=== PATIENT | female | born 1960 | race Caucasian/White ===

== ENCOUNTER → 2018-05-14 10:12 | Outpatient (CLI) | payer MEDICARE, MEDICAID, SELFPAY ==
--- NOTE | 2018-05-14 10:15 | DI.MRI.S_ITS ---
PROCEDURE: MR HEAD/BRAIN WO/W CON INDICATIONS: LUNG MASS TECHNIQUE: Noncontrast axial T1 spin echo, axial T2 fast spin echo, sagittal and axial FLAIR, coronal T2 fast spin echo, axial gradient echo, axial diffusion and ADC through the brain. After the administration of contrast, axial and coronal 3D VIBE or T1 spin echo with fat saturation through the brain. COMPARISON: [facility], CT, CT CHEST ABD PEL W CON, 05/14/2018, 11:17. FINDINGS: Image quality: Excellent. CSF Spaces: Basal cisterns are patent. No extra-axial fluid collections. Ventricles are normal in size and shape. Brain: No midline shift. No intracranial bleeds or masses. No abnormal intracranial enhancement. The brainstem appears normal. Diffusion-weighted images demonstrate no acute ischemic insults. No chronic ischemic insults. Normal intravascular flow voids are present. Skull and face: Calvarial marrow is normal in signal. Orbits appear normal. Sinuses: Sinuses and mastoids appear clear. IMPRESSION: No findings of intracranial metastatic disease are seen. Dictated by: Kody Pride M.D. on 05/14/2018 at 11:05 Approved by: Kody Pride M.D. on 05/14/2018 at 11:06
--- NOTE | 2018-05-14 11:42 | DI.CT.S_ITS ---
PROCEDURE: CT CHEST ABD PEL W CON INDICATIONS: LUNG MASS TECHNIQUE: After the administration of oral and intravenous contrast, 5 mm thick sections acquired from the lung apices to the symphysis. 5 mm coronal and sagittal reformats were performed, with additional 7 mm coronal MIP reformats through the lungs. For radiation dose reduction, the following was used: automated exposure control, adjustment of mA and/or kV according to patient size. COMPARISON: [facility], RG, CT THORAX WITH CONTRAST, 04/23/2018, 13:26. FINDINGS: Image quality: Excellent. CHEST: Lungs and pleura: As noted on outside exam, there is diffuse upper lobe predominant emphysema. A large right upper lobe/hilar mass with spiculated margins causes constriction of the upper lobe bronchi and subsequent atelectasis. There are patchy smaller densities at the periphery of the mass which centrally measures 3.3 x 4.9 cm compared to 3.2 x 5 cm on prior. Craniocaudal extent of the mass is estimated at 4.9 cm. There is diffuse interstitial thickening throughout the peritumoral region of the right upper lobe, suspect for carcinomatosis. Small nodular densities in the left upper lobe laterally are indeterminate. Mediastinum: Heart size is normal. No pericardial effusion. Mediastinal adenopathy is partially confluent with the right upper lobe mass, such as a 12 mm AP diameter node in the pretracheal space at. An 8 mm shorter diameter right hilar node is suspicious. A 13 mm short diameter subcarinal node is abnormal. Thoracic aorta and central pulmonary arteries are normal in size. Esophagus is normal in caliber. No hiatal hernia. Chest wall: No axillary or supraclavicular adenopathy by size criteria. Thyroid gland shows an apparent 8mm nodule in the inferior right lobe. ABDOMEN: Solid organs: Liver is normal in size and enhancement. A posterior subcapsular hypodense mass measuring 3.5 x 6 cm shows internal attenuation of 39 postcontrast, indeterminate. The liver shows overall decreased attenuation compatible with fatty infiltration. Gallbladder appears normal. Biliary system is non dilated. Pancreas enhances normally. Spleen is normal in size and enhancement. Probable splenule lateral to the inferior pole of the spleen. No right adrenal nodules. There is a 9 mm enhancing left adrenal nodule suspect for metastasis. Kidneys demonstrate normal size and enhancement, without hydronephrosis. Peritoneum and bowel: Bowel loops demonstrate normal wall thickness and caliber. No free fluid or air. Nodes and vessels: No retroperitoneal or mesenteric adenopathy by size criteria. Aorta and inferior vena cava are normal in size. Miscellaneous: No ventral hernias. PELVIS: Genitourinary: Bladder wall thickness is normal. Uterus is atrophic. Miscellaneous: No inguinal hernias or adenopathy. Bones: No suspicious bony lesions. Degenerative facet arthropathy. Disc narrowing and mild anterolisthesis L3-4. No vertebral body compression fractures. IMPRESSION: 1. Large right upper lobe/hilar mass suspect for primary bronchogenic carcinoma. There is likely small satellite lesions as well as carcinomatosis within the right upper lobe. 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 2. Marked upper lobe predominant pulmonary emphysema. 3. Hepatic steatosis. Large subhepatic hypodense mass is indeterminant, possible residual of old hematoma. 4. Subcentimeter nodule within the left adrenal gland is suspect for early metastasis. No retroperitoneal or mesenteric adenopathy by size criteria. Dictated by: Rex Carson M.D. on 05/14/2018 at 12:29 Approved by: Rex Carson M.D. on 05/14/2018 at 12:54
== END ==
PROVIDERS: Visit Provider Internal Medicine Hematology & Oncology
DX: R91.8 Other nonspecific abnormal finding of lung field (principal); J43.9 Emphysema, unspecified; K76.0 Fatty (change of) liver, not elsewhere classified; E27.9 Disorder of adrenal gland, unspecified
CPT/HCPCS: 70553; 71260; 74177; A9579; Q9967

== ENCOUNTER 2018-05-20 07:46 | Day surgery (SDC) | payer MEDICARE, MEDICAID, SELFPAY ==
[2018-05-20] VITALS (11 sets, daily range): BP systolic 105–161; BP diastolic 68–93; PULSE 73–80; RESP 14–16; TEMP 36–36.7; O2SAT 93–98; BMI 17.6
--- NOTE | 2018-05-20 | PATH_ITS ---
[facility] Accession Number: [id number] . 01 Material submitted: . COMPLEX CYSTIC POSTERIOR LIVER LESION . 01 Clinical history: . THE STRUCTURE APPEARS MORE LIKE A COMPLEX FLUID COLLECTION WITH YELLOWISH GREEN FLUID CLOUDY (APPROX. BCC ASPIRATED) - SENT TO LAB SEPARATELY NEED CORE BIOPSY . 02 Diagnosis: Specimen Designated Complex Cystic Posterior Liver Lesion: No material and/or tissue identified (material submitted insufficient to survive processing). I05/21/2018 . 02 Electronically signed: . Ben Del Valle MD, Pathologist NPI- [id number] . 01 Gross description: . Received one formalin-filled container labeled with the patient's name and designated needle core biopsy. Scraped from Telfa paper and filtered is an extremely scant aggregate of light huizar tissue, which is filtered, wrapped and entirely submitted in one cassette. [place] [place][id number][place] /[facility] . 02 Pathologist provided ICD-10: K76.89 . 02 CPT . 188822 Performed at: 01 [facility] [address] [facility], [place], [place] [id number] MD Les Bledsoe MD Phone: [phone] Performed at: 02 [facility] [address] [place], [place] [id number] MD Scotty Benitez MD Phone: [phone]
--- NOTE | 2018-05-20 07:05 | DI.CT.S_ITS ---
PROCEDURE: CT BIOPSY LIVER Sedation analgesia for 30 minutes. INDICATIONS: recent CT at [facility] showing RUL/hilar mass and liver mass TECHNIQUE: The indications, alternatives, benefits, risks, and possible complications of the procedure were communicated to the patient. Informed written consent from the patient was obtained and placed in the chart. Continuous EKG and hemodynamic monitoring was started by trained personnel. The patient was brought to the CT suite and per diem registered nurse spiral CT imaging was performed with localization grid. The appropriate site for percutaneous access to the biopsy target was marked, was prepped and draped sterilely, and was infused with local anaesthesia. Under CT guidance, a core biopsy trocar and needle set was advanced to the biopsy target, and specimen(s) were obtained. There is also aspiration of approximately 6 cc of yellowish-green cloudy fluid which was sent to lab for cytology, culture and sensitivity. The trocar and needle were then removed, and the patient was sent for post-procedure monitoring. COMPARISON: None. FINDINGS: Biopsy site: Posterior lateral periphery of right hepatic lobe Needle: 20 gauge biopsy needle with introducer trocar. Number of passes: 3 Medications: 1% lidocaine for local anaesthesia. IV Fentanyl and Versed for conscious sedation for 30 minutes (see nursing record). Complications: None. IMPRESSION: Successful CT-guided biopsy of right hepatic lobe lesion. Dictated by: Jose De Jesus Lopez M.D. on 05/20/2018 at 15:34 Approved by: Jose De Jesus Lopez M.D. on 05/20/2018 at 15:37
[2018-05-20 08:49] LABS: Platelet Count 353 X10^3/uL (150-400)
[2018-05-20 08:56] LABS: INR 1.1 (0.9-1.3); Prothrombin Time 11.7 SECONDS (10.1-12.7)
[2018-05-20 13:35] LABS: Hematocrit 38.8 % (36-46)
--- NOTE | 2018-05-20 14:00 | SUR.PHASEII ---
Dr. Lopez reviewed HCT results done at 1327. Per MD Lopez, verbal order received ok to discharge pt to home at 1345. Pt dressed self and left facility in stable condition, vss.
== END 2018-05-20 13:55 ==
PROVIDERS: Visit Provider Internal Medicine Hematology & Oncology
PROC: BF25ZZZ Computerized Tomography (CT Scan) of Liver (ICD-10-PCS; CPT 47000; principal; 2018-05-20 09:30)
DX: K76.89 Other specified diseases of liver (principal); R91.8 Other nonspecific abnormal finding of lung field; F17.210 Nicotine dependence, cigarettes, uncomplicated; E46 Unspecified protein-calorie malnutrition; I10 Essential (primary) hypertension; I73.00 Raynaud's syndrome without gangrene; F31.9 Bipolar disorder, unspecified; Z72.89 Other problems related to lifestyle
CPT/HCPCS: 36415; 47000; 77012; 85014; 85049; 85610; 87070; 87075; 87205; 88305

== ENCOUNTER → 2018-06-21 10:36 | Outpatient (CLI) | payer MEDICARE, MEDICAID, SELFPAY ==
--- NOTE | 2018-06-21 10:37 | DI.US.S_ITS ---
PROCEDURE: US AXILLARY ONLY INDICATIONS: RIGHT AXILLARY LUMP; RIGHT LUNG CANCER TECHNIQUE: Real-time focused scanning was performed of the right axilla, with image documentation. COMPARISON: [facility], [place], PET NECK TO MID THIGH, 06/09/2018, 13:27. [facility], CR, XR CHEST 1 VIEW, 06/03/2018, 13:23. [facility], CT, CT CHEST ABD PEL W CON, 05/14/2018, 11:17. [facility], RG, CT THORAX WITH CONTRAST, 04/23/2018, 13:26. FINDINGS: Corresponding to the area of current clinical concern from PET CT scanning in this patient with prior long-standing smoking history and a large malignant appearing right lung mass there is an abnormal appearing 0.7 x 0.6 x 1.4 cm hypoechoic morphologically abnormal presumed lymph node having internal vascularity and what appears to be a thickened prominently hypoechoic cortex. This is in the setting of mediastinal and right hilar adenopathy and also what appears to be right subclavian adenopathy on the PET CT scanning from 06/09/18. IMPRESSION: Likely malignant lymph node given the clinical setting described above and PET/CT scanning findings noted. Ultrasound-guided biopsy of this lymph node appears possible. This is a presumed lung carcinoma metastasis and there is no clinical concern for presence of breast carcinoma. Dictated by: Henri Dobbs M.D. on 06/22/2018 at 8:16 Approved by: Henri Dobbs M.D. on 06/22/2018 at 8:23
== END ==
PROVIDERS: PCP Family Medicine; Visit Provider Surgery
DX: C34.91 Malignant neoplasm of unspecified part of right bronchus or lung (principal); N63.31 Unspecified lump in axillary tail of the right breast
CPT/HCPCS: 76882

== ENCOUNTER 2018-07-13 10:38 | Day surgery (SDC) | payer MEDICARE, MEDICAID, SELFPAY ==
[2018-06-23 09:28] VITALS: BMI 18.2
--- NOTE | 2018-06-30 12:47 | ONC.NAV ---
Description: New Pt Intro Activity: Called pt to introduce myself as the Pt Domingo/SENIOR ACCOUNT CLERK, discuss resources and support available, as well as the availability of the [employer]. Pt stated that she has been processing the information that Dr. Ortiz discussed with her during her appointment last week, and is feeling unsure about chemotherapy. She feels that she is so thin, that the chemo would be too hard on my body. SENIOR ACCOUNT CLERK explained that chemotherapy is generally well tolerated by most of our patients, and that the options are a lot better than they were several years ago. Offered supportive counseling and encouragement in terms of making difficult decisions, coping with this new diagnosis, and again encouraged her to join us at the [facility]. She stated that she has good support in her community, and declines additional support or resources at this time. Plan: Continue to monitor. Offer ongoing support and assistance as needed.
[2018-07-13] VITALS (9 sets, daily range): BP systolic 138–173; BP diastolic 75–107; PULSE 83–91; RESP 11–20; TEMP 36.7–37.2; O2SAT 93–100; BMI 17.6
--- NOTE | 2018-07-13 | PATH_ITS ---
[facility] Accession Number: [id number] . 01 Material submitted: . RIGHT AXILLARY LYMPH NODE BIOPSY . 02 Diagnosis: Right Axillary Lymph Nodes, Excisional Biopsy: One of nine lymph nodes positive for metastatic adenocarcinoma, immunophenotypically consistent with lung origin. [facility]/07/19/2018 . 02 Electronically signed: . Aki Lafleur MD, PhD, Pathologist NPI- [id number] . 01 Gross description: . Received in formalin, labeled R axillary lymph node, is an unoriented piece of adipose tissue (5.8 x 2.8 x 1.0 cm) with overlying huizar-white smooth and shiny skin (2.0 x 0.5 cm). A localization wire enters the center of the skin and exits the center of the adipose tissue. Multiple lymph nodes (0.2 x 0.2 x 0.1 cm - 1.1 x 0.8 x 0.4 cm) are identified. Section code: (A1-A2) multiple intact lymph nodes; (A3) one bisected lymph node; (A4) two bisected lymph nodes. ([facility]:[id number]) /[facility] . 02 Microscopic: . Sections are of multiple lymph nodes. One of nine lymph nodes is expanded by a proliferation of epithelioid cells with a nested growth pattern. Immunohistochemical stains are performed (each with an appropriately positive control) to further classify these cells of interest. The epithelioid cells are strongly and diffusely positive for STEVAN, TTF1 and napsin immunoreactivity, and are negative for YUKI-3 nd mammaglobin immunoreactivity. The overall morphology and immunophenotype are consistent with metastatic adenocarcinoma of lung origin. . . * This test was developed and its performance characteristics determined by [employer]. It has not been cleared or approved by the U.S. Food and Drug Administration. The FDA has determined that such clearance or approval is not necessary. This test is used for clinical purposes. It should not be regarded as investigational or for research. . 02 Pathologist provided ICD-10: C77.3 . 02 CPT . 164363, H12722, Q76134 Specimen Comment: A duplicate report has been generated due to demographic updates. Performed at: 01 [facility] [address] [address], [place], [place] [id number] MD Les Bledsoe MD Phone: [phone] Performed at: 02 [facility] [address] [place] [id number] MD Scotty Benitez MD Phone: [phone]
--- NOTE | 2018-07-13 | DI.US.S_ITS ---
PROCEDURE: US WIRE LOC NON BREAST COMPARISON: None. INDICATIONS: ADENOCARINOMA OF RT LUNG; WIRE LOC OF RIGHT AXILLARY NODE... PROCEDURE: PAR conference was performed and all questions were answered. the patient gave informed consent to proceed. Initial ultrasound images were obtained and a suitable skin entry site was selected. The area was prepped and draped in the usual sterile fashion. Local anesthesia was placed using 1% lidocaine. Then, under ultrasound guidance, 7 cm Kopan's wire was inserted such that the tip and thick portion were placed inside the lymph node. All needles were removed and the patient tolerated procedure well. FINDINGS: Wire localization of the right axillary lymph node (previously biopsied) IMPRESSION: Technically successful ultrasound guided wire localization of right axillary lymph node. Dictated by: Oc Garcia M.D. on 07/13/2018 at 18:31 Approved by: Oc Garcia M.D. on 07/13/2018 at 18:34
--- NOTE | 2018-07-13 | DI.RAD.S_ITS ---
PROCEDURE: XR CHEST 1V INDICATIONS: PORTACATH PLACEMENT TECHNIQUE: One view of the chest was acquired. COMPARISON: [facility], CT, CT CHEST ABD PEL W CON, 05/14/2018, 11:17. [facility], [place], PET NECK TO MID THIGH, 06/09/2018, 13:27. FINDINGS: Surgical changes and devices: Left Port-A-Cath is present with distal tip projecting over the proximal SVC. Mid. Lungs and pleura: The right perihilar masslike prominence extends to the right upper lobe, as previously identified. Mediastinum: Mediastinal contours appear normal. Heart size is normal. Bones and chest wall: No suspicious bony lesions. Overlying soft tissues appear unremarkable. IMPRESSION: Port-A-Cath placement as above. Dictated by: Lia Chavis M.D. on 07/13/2018 at 16:04 Approved by: Lia Chavis M.D. on 07/13/2018 at 16:11
[2018-07-13] MEDS: LACTATED RINGERS 1,000 ML 21 ML IV (11:47)
[2018-07-13] MEDS: CEFAZOLIN 2 GM/100 ML FROZ.PIGGY IV (12:18)
--- NOTE | 2018-07-13 12:38 | SUR.OPER ---
Supine on padded OR bed, head on pillow, left arm padded and tucked at side, legs uncrossed, safety belt at thigh, tape over blanket over lower legs .
[2018-07-13] MEDS: LIDOCAINE 1% W/EPI INJ 20 ML INJ ×2 (12:51→13:48)
[2018-07-13] MEDS: BUPIVACAINE 0.25% (PF) VIAL 30 ML INJ (12:52)
--- NOTE | 2018-07-13 14:17 | PM.OP.1 ---
Operative Date/Time/Diagnoses Date of procedure: 07/13/18 Time of procedure: 14:17 Pre-op diagnosis: Right lung adenocarcinoma with possible metastatic right axillary lymphadenopathy and need for long-term IV access for chemotherapy Post-op diagnosis: same Procedure & Clinicians Procedure: 1. Right axillary excisional lymph node biopsy under needle localization 2. 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 Ultrasound-guided lymph node needle biopsy was nondiagnostic. She therefore required right axillary excisional lymph node biopsy under wire localization with concurrent placement of Port-A-Cath to facilitate chemotherapy. Surgeon: Chente Jesus Click Yes if Unassisted: Yes Anesthesia Type: General Operative Notes Findings: 1. Mildly enlarged but otherwise grossly normal right axillary lymph node packet adjacent to chest wall below edge of pectoralis major muscle 2. 9 Trinidadian slim profile power port central venous tunneled port device in good position via left subclavian approach 3. No evidence of pneumothorax on postoperative chest x-ray 4. Complete excision of wire localization device with associated right axillary lymph node packet as above Closure Type: primary Specimen(s): other (Right axillary lymph node packet) Implants & Drains: 9 Trinidadian tunneled central venous port device via left subclavian approach Estimated Blood Loss (mL): 10 Blood products transfused: none Procedure in detail: After obtaining informed consent the patient was brought to the operating room. She had undergone wire localization of the right axillary pathologic lymph nodes by ultrasound guidance preoperatively. Please see their notes for further details. Unfortunately there were no preoperative images for review. Patient is placed supine on the table. After satisfactory induction of anesthesia a SCOAP time-out was performed per standard protocol. Right arm was abducted and a right axillary bump was placed. She was also placed on a shoulder roll. All pressure points were padded appropriately. Wire was inspected and noted to be in good position. Wire was cut at length and the area was prepped and draped in usual sterile fashion. Elliptical incision incorporating the wire insertion site was designed then infiltrated with a 1 :1 mixture 1% lidocaine with 1: 100,000 epinephrine 0.25% plain Marcaine for postoperative analgesia. Skin incision was created with 15 scalpel blade followed by the Bovie for hemostasis. Meticulous blunt and sharp dissection using Metzenbaum scissors was employed to encircle the identified lymph node packet containing the wire localization device. Great care was taken to avoid injury to adjacent vascular and neural structures. Hemostasis was achieved with hemostats in 2 0 silk ties. Specimen was sent for permanent section to evaluate for potential metastatic adenocarcinoma. Wound was irrigated and noted to be hemostatic. Subcutaneous tissue was reapproximated with interrupted 3 0 Vicryl suture. Skin was closed with running 4 0 Monocryl suture in a subcuticular fashion. Dermal adhesive was applied to the skin. Axillary bump was removed. Right arm was tucked to the side and padded appropriately. Left arm had been tucked to the side and padded appropriately as well. The entire operative field was then re-prepped and draped in the usual sterile fashion. All instruments were changed as well to proceed with port insertion. Patient is placed in Trendelenburg position. Local anesthesia was achieved in the left infraclavicular region with 1% lidocaine with 1:100,000 epinephrine. Access needle was then placed percutaneously deep to the left clavicle and the left subclavian vein was accessed without difficulty on the 1st attempt. Guidewire was threaded distally and noted to be in good position in the right heart under fluoroscopy. Wire was removed and transverse skin incision was created several cm below the wire insertion site using 15 scalpel blade. Bovie was used to achieve hemostasis and carried the dissection down to the pectoralis fascia. Subcutaneous pocket was then created bluntly to accommodate the port. Catheter was attached to the port device with the locking mechanism and flushed with saline using the straight Ann needle. Port device was placed in the subcutaneous pocket and the catheter was brought exit of the guidewire insertion site using the tunneling device. Under fluoroscopic visualization the catheter was approximated to adequate length and cut just around the 20 cm lucio using straight Brown scissors. Under direct fluoroscopic visualization the venous dilator and sheaths was inserted via sterile Seldinger technique into the superior vena cava after returning the patient to a supine position. Catheter was threaded distally after the guidewire and dilator were removed as a single unit. Sheath was removed. Catheter was noted to be in good position. Catheter flushed and aspirated easily with saline using the straight Ann needle. Port was secured to the pectoralis fascia with interrupted 3 0 Prolene suture. Hemostasis was again verified. Subcutaneous tissue was reapproximated with interrupted 3 0 Vicryl suture. Skin was closed with running 4 0 Monocryl suture in a subcuticular fashion. Dermal adhesive was applied. Port was then accessed percutaneously with a straight Ann needle and noted to aspirate and flushed with saline followed by 2000 units of heparin to prevent catheter thrombosis. Anesthesia was reversed and patient extubated in the operating room. She was taken recovery stable condition. Complications: none Condition: stable Disposition: PACU Plan for aftercare: 1. Discharged home 2. Follow up in surgery Clinic in 2 weeks
== END 2018-07-13 15:15 | disposition home or self-care (01) ==
PROVIDERS: PCP Family Medicine; Visit Provider Surgery
PROC: (CPT 38500; principal; 2018-07-13 12:15)
PROC: (CPT 38500; 2018-07-13 12:15)
DX: C34.91 Malignant neoplasm of unspecified part of right bronchus or lung (principal); Z45.2 Encounter for adjustment and management of vascular access device; C77.3 Secondary and unspecified malignant neoplasm of axilla and upper limb lymph nodes
CPT/HCPCS: 38500; 36561; 10035; 71045; 76000; 88305; 88341; 88342; C1788; J0690; J1644; J2405; J2704; J3010

== ENCOUNTER → 2018-10-28 11:10 | Outpatient (CLI) | payer MEDICARE, SELFPAY ==
--- NOTE | 2018-10-28 11:31 | DI.CT.S_ITS ---
PROCEDURE: CT CHEST ABDOMEN W CON INDICATIONS: Surveillance adenocarcinoma of right lung TECHNIQUE: After the administration of oral contrast and intravenous contrast, 5 mm thick sections acquired from the lung apices to the iliac crests. 5 mm coronal and sagittal reformats were performed, with additional 7 mm coronal MIP reformats through the lungs. For radiation dose reduction, the following was used: automated exposure control, adjustment of mA and/or kV according to patient size. COMPARISON: [facility], [place], PET NECK TO MID THIGH, 06/09/2018, 13:27. [facility], CT, CT CHEST ABD PEL W CON, 05/14/2018, 11:17. FINDINGS: Image quality: Excellent. CHEST: Lungs and pleura: No acute air space opacities. No pleural effusions or pneumothorax. Central and peripheral airways are patent and normal in caliber. There is mild post procedural fibrotic change at the right upper lobe extending to the upper right hilum area, where a large mass malignant in appearance and positive on PET CT scanning had previously been present in June of last year. A residual malignant appearing mass is not seen, but there is a small degree of soft tissue prominence within the right border of the mediastinum and extending into the pericaval and right pretracheal space. This may simply represent post treatment scarring, but the soft tissue prominence measures up to 3.9 cm oblique AP and 2 cm oblique transverse. The heterogeneous enhancement pattern previously present indicating invasive mediastinal malignancy is now homogeneous. Mediastinum: Heart size is normal. No pericardial effusion. No mediastinal or hilar adenopathy by size criteria. Thoracic aorta and central pulmonary arteries are normal in size. Esophagus is normal in caliber. No hiatal hernia. Chest wall: No axillary or supraclavicular adenopathy by size criteria. Thyroid gland appears normal. ABDOMEN: Solid organs: Liver is normal in size and the liver is generally normal in enhancement. A lentiform homogeneous low-attenuation structure at the right posterior hepatic segment is stable over time, measures higher than water in radiodensity at 29 Hounsfield units, and appears extrinsic to the liver capsule, potentially a coincidental peritoneal proteinaceous cyst. Gallbladder appears normal. Biliary system is non dilated. Pancreas enhances normally. Spleen is normal in size and enhancement. No adrenal nodules. Kidneys are normal in size and enhancement, without hydronephrosis. Peritoneum and bowel: Bowel loops demonstrate normal wall thickness and caliber. No free fluid or air. Nodes and vessels: No retroperitoneal or mesenteric adenopathy by size criteria. Aorta and inferior vena cava are normal in caliber. Bones: No suspicious bony lesions. No vertebral body compression fractures. Miscellaneous: No ventral hernias. IMPRESSION: 1. Marked improvement in a malignant appearing mass at the superior medial right lung invading the right mediastinum. This mass has prominently diminished in size, and has been replaced by a homogeneous band of radiodense soft tissue along the medial lung margin and mediastinal border on the right, potentially representing scarring from prior successful treatment. 2. Mild fibrotic changes seen within the right upper lobe, likely secondary to radiation therapy in this clinical setting. Please correlate clinically. Severe emphysematous change and COPD is present, as was previously the case. No new lung or pleural mass has developed. 3. A previously present lentiform homogeneous extrahepatic structure measures higher than water in density along the posterior hepatic capsule, and has imaging characteristics potentially representing a coincidentally present proteinaceous peritoneal cyst. This does not have imaging characteristics indicative of a primary or metastatic malignant neoplasm, in my opinion. 4. No distant metastatic disease has developed. A left-sided Port-A-Cath crosses the midline and extends into the distal SVC. Dictated by: Henri Dobbs M.D. on 10/28/2018 at 16:56 Approved by: Henri Dobbs M.D. on 10/28/2018 at 17:05
== END ==
PROVIDERS: PCP Nurse Practitioner; Visit Provider Nurse Practitioner Gerontology
DX: C34.91 Malignant neoplasm of unspecified part of right bronchus or lung (principal); J44.9 Chronic obstructive pulmonary disease, unspecified
CPT/HCPCS: 36592; 71260; 74160; 85025; Q9967

== ENCOUNTER → 2019-01-19 09:05 | Outpatient (CLI) | payer MEDICARE, MEDICAID, SELFPAY | PROVIDERS: PCP Nurse Practitioner; Visit Provider Family Medicine | DX: I70.235 Atherosclerosis of native arteries of right leg with ulceration of other part of foot (principal); L97.512 Non-pressure chronic ulcer of other part of right foot with fat layer exposed; C34.90 Malignant neoplasm of unspecified part of unspecified bronchus or lung; E46 Unspecified protein-calorie malnutrition; L03.031 Cellulitis of right toe | CPT/HCPCS: 87070; 87075; 87205 ==

== ENCOUNTER → 2019-01-19 11:33 | Outpatient (CLI) | payer MEDICARE, SELFPAY ==
--- NOTE | 2019-01-19 | DI.RAD.S_ITS ---
PROCEDURE: XR TOE RT MIN 2V INDICATIONS: ARTERIAL ULCER TECHNIQUE: 3 views of the fifth toe(s) acquired. COMPARISON: None. FINDINGS: Bones: No fractures or dislocations. No suspicious bony lesions. Soft tissues: No suspicious soft tissue densities. IMPRESSION: No osteomyelitis. Mild irregularity of the soft tissues of the distal phalanx of the fifth toe. This is consistent with the clinical report of soft tissue ulceration. Dictated by: Henri Dobbs M.D. on 01/19/2019 at 13:21 Approved by: Henri Dobbs M.D. on 01/19/2019 at 13:44
== END ==
PROVIDERS: PCP Nurse Practitioner; Visit Provider Family Medicine
DX: I77.89 Other specified disorders of arteries and arterioles (principal); I73.9 Peripheral vascular disease, unspecified
CPT/HCPCS: 73660; 87070; 87075; 87077; 87186; 87205; 93922; 97602; 99203; 99213

== ENCOUNTER → 2019-01-26 08:38 | Outpatient (CLI) | payer MEDICARE, MEDICAID, SELFPAY | PROVIDERS: PCP Nurse Practitioner; Visit Provider Family Medicine | DX: I70.235 Atherosclerosis of native arteries of right leg with ulceration of other part of foot (principal); L97.512 Non-pressure chronic ulcer of other part of right foot with fat layer exposed; B95.7 Other staphylococcus as the cause of diseases classified elsewhere; C34.91 Malignant neoplasm of unspecified part of right bronchus or lung; L03.031 Cellulitis of right toe; R56.9 Unspecified convulsions | CPT/HCPCS: 70553; 93926; 99214; A9579 ==

== ENCOUNTER → 2019-01-26 09:22 | Outpatient (CLI) | payer MEDICARE, MEDICAID, SELFPAY ==
--- NOTE | 2019-01-26 | DI.US.S_ITS ---
PROCEDURE: US ARTERIAL DUPLEX LE RT INDICATIONS: NONPRESSURE RIGHT ULCER TECHNIQUE: Color and pulse Doppler interrogation was performed of the right lower extremity arterial system, with image documentation. COMPARISON: None. FINDINGS: Common femoral artery: 252 cm/sec, with triphasic flow. Deep femoral artery: 200 cm/sec, with monophasic flow. Proximal superficial femoral artery: 155 cm/sec, with triphasic flow. Mid superficial femoral artery: 132 cm/sec, with triphasic flow. Distal superficial femoral artery: 68 cm/sec, with triphasic flow. Popliteal artery: 41 cm/sec, with triphasic flow. Posterior tibial artery: 48 cm/sec, with triphasic flow. Anterior tibial artery/dorsalis pedis: 29 cm/sec, with biphasic flow. Sumner-scale imaging description: No significant sumner scale abnormality is seen. IMPRESSION: Elevated flow velocity is seen within the common femoral artery and within the proximal profunda femoris artery, which is suggestive of greater than 50% stenoses at these sites. Dictated by: Kody Pride M.D. on 01/26/2019 at 12:38 Approved by: Kody Pride M.D. on 01/26/2019 at 12:41
== END ==
PROVIDERS: PCP Nurse Practitioner; Visit Provider Family Medicine
DX: C34.91 Malignant neoplasm of unspecified part of right bronchus or lung (principal); L97.919 Non-pressure chronic ulcer of unspecified part of right lower leg with unspecified severity
CPT/HCPCS: 70553; 93926; A9579

== ENCOUNTER → 2019-02-02 10:41 | Outpatient (CLI) | payer MEDICARE, MEDICAID, SELFPAY | PROVIDERS: PCP Nurse Practitioner; Visit Provider Family Medicine | DX: I70.235 Atherosclerosis of native arteries of right leg with ulceration of other part of foot (principal); L97.512 Non-pressure chronic ulcer of other part of right foot with fat layer exposed; C34.90 Malignant neoplasm of unspecified part of unspecified bronchus or lung; E46 Unspecified protein-calorie malnutrition; L03.031 Cellulitis of right toe; B95.7 Other staphylococcus as the cause of diseases classified elsewhere | CPT/HCPCS: 99213; 99214 ==

== ENCOUNTER → 2019-02-10 14:34 | Outpatient (CLI) | payer MEDICARE, MEDICAID, SELFPAY | PROVIDERS: PCP Nurse Practitioner; Visit Provider Family Medicine | DX: I70.235 Atherosclerosis of native arteries of right leg with ulceration of other part of foot (principal); L97.515 Non-pressure chronic ulcer of other part of right foot with muscle involvement without evidence of necrosis; C34.90 Malignant neoplasm of unspecified part of unspecified bronchus or lung; E46 Unspecified protein-calorie malnutrition; L03.031 Cellulitis of right toe; B95.7 Other staphylococcus as the cause of diseases classified elsewhere | CPT/HCPCS: 11043 ==

== ENCOUNTER → 2019-02-17 13:43 | Outpatient (CLI) | payer MEDICARE, SELFPAY | PROVIDERS: PCP Nurse Practitioner; Visit Provider Family Medicine | DX: I70.235 Atherosclerosis of native arteries of right leg with ulceration of other part of foot (principal); L97.515 Non-pressure chronic ulcer of other part of right foot with muscle involvement without evidence of necrosis; C34.90 Malignant neoplasm of unspecified part of unspecified bronchus or lung; E46 Unspecified protein-calorie malnutrition | CPT/HCPCS: 99213; 99214 ==

== ENCOUNTER → 2019-02-24 13:01 | Outpatient (CLI) | payer MEDICARE, MEDICAID, SELFPAY | PROVIDERS: PCP Nurse Practitioner; Visit Provider Family Medicine | DX: I70.235 Atherosclerosis of native arteries of right leg with ulceration of other part of foot (principal); L97.512 Non-pressure chronic ulcer of other part of right foot with fat layer exposed; E46 Unspecified protein-calorie malnutrition | CPT/HCPCS: 99213 ==

== ENCOUNTER → 2019-03-03 10:01 | Outpatient (CLI) | payer MEDICARE, MEDICAID, SELFPAY | PROVIDERS: PCP Nurse Practitioner; Visit Provider Family Medicine | DX: I70.235 Atherosclerosis of native arteries of right leg with ulceration of other part of foot (principal); L97.516 Non-pressure chronic ulcer of other part of right foot with bone involvement without evidence of necrosis; C34.90 Malignant neoplasm of unspecified part of unspecified bronchus or lung; E46 Unspecified protein-calorie malnutrition; M79.674 Pain in right toe(s); R60.0 Localized edema; L08.9 Local infection of the skin and subcutaneous tissue, unspecified | CPT/HCPCS: 11042; 87070; 87075; 87077; 87186; 87205; 99214 ==

== ENCOUNTER → 2019-03-17 13:01 | Outpatient (CLI) | payer MEDICARE, MEDICAID, SELFPAY | PROVIDERS: PCP Physician Assistant; Visit Provider Family Medicine | DX: I70.235 Atherosclerosis of native arteries of right leg with ulceration of other part of foot (principal); L97.516 Non-pressure chronic ulcer of other part of right foot with bone involvement without evidence of necrosis | CPT/HCPCS: 97597 ==

== ENCOUNTER → 2019-03-24 13:06 | Outpatient (CLI) | payer MEDICARE, MEDICAID, SELFPAY | PROVIDERS: PCP Physician Assistant; Visit Provider Family Medicine | DX: I70.235 Atherosclerosis of native arteries of right leg with ulceration of other part of foot (principal); L97.516 Non-pressure chronic ulcer of other part of right foot with bone involvement without evidence of necrosis; C34.90 Malignant neoplasm of unspecified part of unspecified bronchus or lung; E46 Unspecified protein-calorie malnutrition | CPT/HCPCS: 80053; 85025; 97597; 99214 ==

== ENCOUNTER → 2019-03-31 13:46 | Outpatient (CLI) | payer MEDICARE, MEDICAID, SELFPAY | PROVIDERS: PCP Physician Assistant; Visit Provider Family Medicine | DX: I70.235 Atherosclerosis of native arteries of right leg with ulceration of other part of foot (principal); L97.516 Non-pressure chronic ulcer of other part of right foot with bone involvement without evidence of necrosis; C34.90 Malignant neoplasm of unspecified part of unspecified bronchus or lung; E46 Unspecified protein-calorie malnutrition | CPT/HCPCS: 11042 ==

== ENCOUNTER → 2019-03-31 15:49 | Outpatient (CLI) | payer MEDICARE, SELFPAY ==
--- NOTE | 2019-03-31 | DI.ECHO.S_ITS ---
[facility] +---------+ : : [address] [place] : : : : [id number] : : : : Phone: [phone]+ Echocardiogram Report + + :Name: RICH BOTELLO Study Date: 03/31/2019 Height: 65 in : :[facility] Weight: 100 lb : : Gender: Female BSA: 1.5 m2 : :: 1960 Age: 58 yrs BP: 147/86 mmHg: :Reason For Study: SHORT OF BREATH : : Performed By: Sohail Jay : :Referring: SARAH VILLA : + + Interpretation Summary The ejection fraction is estimated to be 60-65%. There is no significant valvular heart disease. Procedure: A two-dimensional transthoracic echocardiogram with color flow and Doppler was performed. The study quality was technically good. There is no prior echocardiogram noted for this patient. The patient was in normal sinus rhythm during the exam. Left Ventricle: The left ventricle is normal in size. Left ventricular wall thickness is mildly increased. The ejection fraction is estimated to be 60- 65%. There are no focal wall motion abnormalities. Right Ventricle: The right ventricle is normal in size and function. Atria: Both atria are normal in size. The interatrial septum is intact with no evidence for an atrial septal defect. Mitral Valve: The mitral valve is normal in structure and function. There is trace mitral regurgitation. Aortic Valve: The aortic valve is normal in structure and function. The aortic valve is trileaflet. The aortic valve opens well. No aortic regurgitation is present. Tricuspid Valve: The tricuspid valve is normal in structure and function. There is mild tricuspid regurgitation. The right ventricular systolic pressure is estimated to be at least 33 mmHg based on an estimated right atrial pressure of 3 mm Hg. Pulmonic Valve: The pulmonic valve is normal in structure and function. There is no pulmonic valvular regurgitation. Great Vessels: The aortic root is normal size. The dimensions of the ascending aorta are normal. The pulmonary artery is normal size. The IVC is of normal diameter and collapses greater than 50% with a sniff. This suggests a low right atrial pressure of 3 mm Hg. Pericardium/ Pleura There is no pericardial effusion. There is no pleural effusion. MMode/2D Measurements & Calculations LVIDd: 3.7 cm LVOT diam: 2.3 cm LVIDs: 2.4 cm Ao root diam: 3.1 cm FS: 34.0 % Aortic Jxn: 2.4 cm EPSS: 0.43 cm asc Aorta Diam: 2.6 cm IVSd: 1.0 cm Ao Arch Diam (Prox Trans): 2.5 cm LVPWd: 0.85 cm LV vicente. diameter/BSA (cm/m^2): 2.5 LV sys. diameter/BSA (cm/m^2): 1.7 LA dimension: 2.5 cm RA long axis: 3.2 cm LA A2 area: 17.4 cm2 RA area: 10.0 cm2 LA A4 area: 11.5 cm2 RA vol: 27.0 ml LA length (vol): 4.2 cm RA : 18.4 ml/m2 LA vol: 40.3 ml IVC diam: 1.6 cm LA vol index: 27.3 ml/m2 Doppler Measurements & Calculations Ao V2 max: 105.3 cm/sec LVOT Max Jorden: 79.4 cm/sec Ao V2 mean: 75.8 cm/sec LV V1 max P.5 mmHg Ao max P.4 mmHg LV V1 VTI: 14.5 cm Ao mean P.5 mmHg WILBER(I,D): 3.4 cm2 Ao V2 VTI: 17.2 cm WILBER(V,D): 3.0 cm2 sev ratio: 0.84 WILBRE indexed to BSA (cm^2/m^2): 2.3 MV E max jorden: 52.5 cm/sec TR max jorden: 275.4 cm/sec MV A max jorden: 59.9 cm/sec TR max P.3 mmHg MV E/A: 0.88 PA V2 max: 66.3 cm/sec Med Peak E' Jorden: 4.4 cm/sec PA V2 mean: 49.1 cm/sec E/E' med: 11.8 PA mean P.0 mmHg Lat Peak E' Jorden: 3.1 cm/sec PA pr(Accel): 39.1 mmHg E/E' lat: 17.0 PA Accel Time: 0.09 sec E/e' average: 14.4 MV dec time: 0.13 sec SV(LVOT): 57.8 ml Reading Physician:05:55 PM
== END ==
PROVIDERS: PCP Physician Assistant; Visit Provider Family Medicine
DX: I07.1 Rheumatic tricuspid insufficiency (principal); R06.02 Shortness of breath
CPT/HCPCS: 11042; 93306

== ENCOUNTER → 2019-04-15 12:26 | Outpatient (CLI) | payer MEDICARE, SELFPAY ==
--- NOTE | 2019-04-15 12:32 | DI.CT.S_ITS ---
PROCEDURE: CT CHEST ABD PEL W CON INDICATIONS: LUNG CANCER TECHNIQUE: After the administration of oral and intravenous contrast, 5 mm thick sections acquired from the lung apices to the symphysis. 5 mm coronal and sagittal reformats were performed, with additional 7 mm coronal MIP reformats through the lungs. For radiation dose reduction, the following was used: automated exposure control, adjustment of mA and/or kV according to patient size. COMPARISON: [facility], CT, CT CHEST ABD PEL W CON, 05/14/2018, 11:17. FINDINGS: Image quality: Excellent. CHEST: Lungs and pleura: Stable residual mass/scar in the right upper lobe medial segment, (04/08). No new or enlarging pulmonary nodules. A few scattered calcific granuloma in the left upper lobe. Severe upper lobe predominant centrilobular emphysema. No pleural effusion. No pneumothorax. Mediastinum: Heart size is normal. Left-sided port with the catheter tip terminating in the upper third of the SVC. No central pulmonary embolism. No pericardial effusion. No suspicious or enlarged adenopathy. Thoracic aorta and central pulmonary arteries are normal in size. Esophagus is normal in caliber. No hiatal hernia. Chest wall: No axillary or supraclavicular adenopathy by size criteria. Similar area soft tissue thickening in the right axilla, (2/20). Thyroid gland is unremarkable. ABDOMEN: Solid organs: Low-density collection/lesion at the inferior margin of the right lobe liver measures 2.7 x 2.9 cm, (2/64), previously 6.6 x 3.1 cm. This was not previously FDG avid and was previously sampled. No new hepatic lesion. Gallbladder is unremarkable. Biliary system is non dilated. Pancreas enhances normally. Spleen is normal in size and enhancement. No adrenal nodules. Kidneys demonstrate normal size and enhancement, without hydronephrosis. Peritoneum and bowel: Liquid stool contents throughout the mid colon. No bowel obstruction. No free fluid or air. Nodes and vessels: No retroperitoneal or mesenteric adenopathy by size criteria. Aorta and inferior vena cava are normal in size. Miscellaneous: No ventral hernias. PELVIS: Genitourinary: Bladder wall thickness is normal. Miscellaneous: No inguinal hernias or adenopathy. Bones: No suspicious bony lesions. No vertebral body compression fractures. IMPRESSION: 1. Stable small right upper lobe residual mass/scar. 2. No suspicious adenopathy. 3. Slight decrease in the low-density collection/lesion at the inferior margin of the liver. Dictated by: Pedro Bailey M.D. on 04/15/2019 at 14:58 Approved by: Pedro Bailey M.D. on 04/15/2019 at 15:22
== END ==
PROVIDERS: PCP Physician Assistant; Visit Provider Internal Medicine Hematology & Oncology
DX: C34.91 Malignant neoplasm of unspecified part of right bronchus or lung (principal); D64.9 Anemia, unspecified; I70.235 Atherosclerosis of native arteries of right leg with ulceration of other part of foot; L97.516 Non-pressure chronic ulcer of other part of right foot with bone involvement without evidence of necrosis
CPT/HCPCS: 11042; 71260; 74177; 99213; Q9967

== ENCOUNTER → 2019-04-15 14:02 | Outpatient (CLI) | payer MEDICARE, SELFPAY | PROVIDERS: PCP Physician Assistant; Visit Provider Family Medicine | DX: I70.235 Atherosclerosis of native arteries of right leg with ulceration of other part of foot (principal); L97.516 Non-pressure chronic ulcer of other part of right foot with bone involvement without evidence of necrosis | CPT/HCPCS: 11042; 99213 ==

== ENCOUNTER → 2019-04-21 13:46 | Outpatient (CLI) | payer MEDICARE, SELFPAY ==
[2019-04-21 15:27] LABS: Add Manual Diff / Slide Review NO; Basophils Absolute Auto 100 /uL (0-100); Basophils Percent Auto 0.8 % (0-2); Eosinophils Absolute Auto 200 /uL (0-450); Hematocrit 37.9 % (36-46); Hemoglobin 12.6 g/dL (12.0-16.0); Lymphocytes Absolute Auto 1900 /uL (1100-4500); Lymphocytes Percent Auto 29.1 % (25-40); Mean Corpuscular HGB Conc 33.2 % (30-36); Mean Corpuscular Hemoglobin 31.7 PG (26-34); Mean Corpuscular Volume 95.4 fL (80-100); Monocytes Absolute Auto 600 /uL (0-900); Monocytes Percent Auto 8.9 % (3-14); Neutrophils Absolute Auto 3800 /uL (1500-7000); Neutrophils Percent Auto 58.2 % (50-75); Platelet Count 346 X10^3/uL (150-400); Red Blood Cell Count 3.97 X10^6/uL (4.0-5.2); Red Cell Distribution Width 14.7 % (11.6-14.8); White Blood Cell Count 6.6 X10^3/uL (4.5-11.0)
[2019-04-21 15:41] LABS: Alanine Aminotransferase 18 IU/L (9-52); Albumin 4.4 g/dL (3.5-5.0); Albumin Globulin Ratio 1.3 (1.0-2.8); Alkaline Phosphatase 87 U/L (38-126); Aspartate Aminotransferase 30 IU/L (14-36); BUN Creatinine Ratio 22.2 (6-22); Bilirubin Total 0.4 mg/dL (0.2-1.3); Blood Urea Nitrogen 20 mg/dL (7-17); Calcium 9.7 mg/dL (8.4-10.2); Carbon Dioxide 28 mmol/L (22-32); Chloride 102 mmol/L (98-107); Estimated Glomerular Filt Rate > 60.0 mL/min (>60); Globulin 3.3 g/dL (1.7-4.1); Glucose 92 mg/dL (70-100); HEMOLYSIS 23 (0-50); Potassium 4.2 mmol/L (3.4-5.1); Sodium 136 mmol/L (137-145); Total Protein 7.7 g/dL (6.3-8.2)
[2019-04-21 15:42] LABS: C-Reactive Protein Quant < 0.5 mg/dL (<1.0)
[2019-04-21 15:44] LABS: Erythrocyte Sedimentation Rate 36 MM/HR (0-20)
[2019-04-21 15:46] LABS: Prealbumin 26.8 mg/dL (17.6-36.0)
== END ==
PROVIDERS: PCP Physician Assistant; Visit Provider Family Medicine
DX: I70.235 Atherosclerosis of native arteries of right leg with ulceration of other part of foot (principal); L97.516 Non-pressure chronic ulcer of other part of right foot with bone involvement without evidence of necrosis; L08.9 Local infection of the skin and subcutaneous tissue, unspecified; C34.90 Malignant neoplasm of unspecified part of unspecified bronchus or lung; E46 Unspecified protein-calorie malnutrition; I10 Essential (primary) hypertension
CPT/HCPCS: 11044; 80053; 84134; 85025; 85651; 86140; 87070; 87075; 87176; 87186; 87205

== ENCOUNTER → 2019-04-28 13:28 | Outpatient (CLI) | payer MEDICARE, SELFPAY | PROVIDERS: PCP Physician Assistant; Visit Provider Family Medicine | DX: I70.235 Atherosclerosis of native arteries of right leg with ulceration of other part of foot (principal); L97.516 Non-pressure chronic ulcer of other part of right foot with bone involvement without evidence of necrosis; C34.90 Malignant neoplasm of unspecified part of unspecified bronchus or lung; E46 Unspecified protein-calorie malnutrition; M86.671 Other chronic osteomyelitis, right ankle and foot | CPT/HCPCS: 99212; 99214 ==

== ENCOUNTER → 2019-05-05 10:52 | Outpatient (CLI) | payer MEDICARE, SELFPAY | PROVIDERS: Family Provider Physician Assistant; PCP Physician Assistant; Visit Provider Family Medicine | DX: I70.235 Atherosclerosis of native arteries of right leg with ulceration of other part of foot (principal); L97.511 Non-pressure chronic ulcer of other part of right foot limited to breakdown of skin; M79.674 Pain in right toe(s) | CPT/HCPCS: 99213 ==

== ENCOUNTER → 2019-05-12 12:59 | Outpatient (CLI) | payer MEDICARE, SELFPAY | PROVIDERS: PCP Physician Assistant; Visit Provider Family Medicine | DX: I73.9 Peripheral vascular disease, unspecified (principal); L97.516 Non-pressure chronic ulcer of other part of right foot with bone involvement without evidence of necrosis; M86.671 Other chronic osteomyelitis, right ankle and foot; M79.674 Pain in right toe(s); E46 Unspecified protein-calorie malnutrition; C34.90 Malignant neoplasm of unspecified part of unspecified bronchus or lung; R19.7 Diarrhea, unspecified | CPT/HCPCS: 97597; 99213; 99214 ==

== ENCOUNTER → 2019-05-12 13:51 | Outpatient (CLI) | payer MEDICARE, MEDICAID, SELFPAY ==
[2019-05-12 14:19] LABS: Add Manual Diff / Slide Review NO; Basophils Absolute Auto 100 /uL (0-100); Eosinophils Absolute Auto 100 /uL (0-450); Eosinophils Percent Auto 1.4 % (2-4); Hematocrit 36.2 % (36-46); Hemoglobin 12.5 g/dL (12.0-16.0); Lymphocytes Absolute Auto 1700 /uL (1100-4500); Lymphocytes Percent Auto 30.8 % (25-40); Mean Corpuscular HGB Conc 34.4 % (30-36); Mean Corpuscular Hemoglobin 32.4 PG (26-34); Mean Corpuscular Volume 94.1 fL (80-100); Monocytes Absolute Auto 600 /uL (0-900); Monocytes Percent Auto 11.2 % (3-14); Neutrophils Absolute Auto 3100 /uL (1500-7000); Neutrophils Percent Auto 55.6 % (50-75); Platelet Count 284 X10^3/uL (150-400); Red Blood Cell Count 3.85 X10^6/uL (4.0-5.2); Red Cell Distribution Width 14.4 % (11.6-14.8); White Blood Cell Count 5.5 X10^3/uL (4.5-11.0)
[2019-05-12 14:47] LABS: BUN Creatinine Ratio 17.3 (6-22); Blood Urea Nitrogen 19 mg/dL (7-17); Calcium 9.8 mg/dL (8.4-10.2); Carbon Dioxide 30 mmol/L (22-32); Chloride 99 mmol/L (98-107); Estimated Glomerular Filt Rate 50.8 mL/min (>60); Glucose 73 mg/dL (70-100); HEMOLYSIS < 15 (0-50); Potassium 4.8 mmol/L (3.4-5.1); Sodium 139 mmol/L (137-145)
[2019-05-12 16:00] LABS: Clostridium Difficile Tox PCR Negative for C. diff
== END ==
PROVIDERS: Family Provider Physician Assistant; PCP Physician Assistant; Visit Provider Family Medicine
DX: L97.516 Non-pressure chronic ulcer of other part of right foot with bone involvement without evidence of necrosis (principal); L08.9 Local infection of the skin and subcutaneous tissue, unspecified; R19.7 Diarrhea, unspecified
CPT/HCPCS: 36415; 80048; 85025; 87493; 97597; 99213

== ENCOUNTER → 2019-05-19 13:01 | Outpatient (CLI) | payer MEDICARE, SELFPAY | PROVIDERS: Family Provider Physician Assistant; PCP Physician Assistant; Visit Provider Family Medicine | DX: I70.235 Atherosclerosis of native arteries of right leg with ulceration of other part of foot (principal); L97.516 Non-pressure chronic ulcer of other part of right foot with bone involvement without evidence of necrosis; C34.90 Malignant neoplasm of unspecified part of unspecified bronchus or lung; E46 Unspecified protein-calorie malnutrition; M86.671 Other chronic osteomyelitis, right ankle and foot; R19.7 Diarrhea, unspecified | CPT/HCPCS: 97597 ==

== ENCOUNTER → 2019-05-19 14:01 | Outpatient (CLI) | payer MEDICARE, SELFPAY ==
--- NOTE | 2019-05-19 | DI.RAD.S_ITS ---
PROCEDURE: XR FOOT RT MIN 3V INDICATIONS: RT FT 5th Toe Evaluate for Osteo TECHNIQUE: 4 views of the foot were acquired. COMPARISON: None. FINDINGS: Bones: No fractures or dislocations. loss of cortical definition involving the proximal phalanx of the fifth toe on the medial side Soft tissues: No tibiotalar joint effusion. Achilles tendon appears normal. IMPRESSION: Possible cortical loss involving the medial aspect of the proximal phalanx of the fifth toe. This is highly suspicious for osteomyelitis.Further evaluation with short interval serial radiographs, or contrast-enhanced MRI could be performed. Dictated by: Oc Garcia M.D. on 05/19/2019 at 17:36 Approved by: Oc Garcia M.D. on 05/19/2019 at 17:39
== END ==
PROVIDERS: Family Provider Physician Assistant; PCP Physician Assistant; Visit Provider Family Medicine
DX: L97.516 Non-pressure chronic ulcer of other part of right foot with bone involvement without evidence of necrosis (principal)
CPT/HCPCS: 73630; 97597

== ENCOUNTER → 2019-05-26 13:00 | Outpatient (CLI) | payer MEDICARE, SELFPAY ==
[2019-05-26 14:42] LABS: Erythrocyte Sedimentation Rate 21 MM/HR (0-20)
[2019-05-26 14:45] LABS: Prealbumin 27.1 mg/dL (17.6-36.0)
[2019-05-26 14:46] LABS: C-Reactive Protein Quant < 0.5 mg/dL (<1.0)
== END ==
PROVIDERS: Family Provider Physician Assistant; PCP Physician Assistant; Visit Provider Family Medicine
DX: I70.235 Atherosclerosis of native arteries of right leg with ulceration of other part of foot (principal); L97.516 Non-pressure chronic ulcer of other part of right foot with bone involvement without evidence of necrosis; E46 Unspecified protein-calorie malnutrition; M86.671 Other chronic osteomyelitis, right ankle and foot; R19.7 Diarrhea, unspecified
CPT/HCPCS: 36415; 84134; 85651; 86140; 99212; 99213

== ENCOUNTER → 2019-06-16 10:18 | Outpatient (CLI) | payer MEDICARE, MEDICAID, SELFPAY | PROVIDERS: Family Provider Physician Assistant; PCP Physician Assistant; Visit Provider Family Medicine | DX: L97.516 Non-pressure chronic ulcer of other part of right foot with bone involvement without evidence of necrosis (principal); I77.9 Disorder of arteries and arterioles, unspecified; M86.671 Other chronic osteomyelitis, right ankle and foot | CPT/HCPCS: 99213 ==

== ENCOUNTER → 2019-06-23 13:19 | Outpatient (CLI) | payer MEDICARE, MEDICAID, SELFPAY | PROVIDERS: Family Provider Physician Assistant; PCP Physician Assistant; Visit Provider Family Medicine | DX: I70.235 Atherosclerosis of native arteries of right leg with ulceration of other part of foot (principal); L97.516 Non-pressure chronic ulcer of other part of right foot with bone involvement without evidence of necrosis; M86.671 Other chronic osteomyelitis, right ankle and foot | CPT/HCPCS: 99212; 99213 ==

== ENCOUNTER → 2019-07-07 12:59 | Outpatient (CLI) | payer MEDICARE, SELFPAY | PROVIDERS: Family Provider Physician Assistant; PCP Physician Assistant; Visit Provider Family Medicine | DX: I70.235 Atherosclerosis of native arteries of right leg with ulceration of other part of foot (principal); S91.301A Unspecified open wound, right foot, initial encounter; I73.9 Peripheral vascular disease, unspecified; C34.90 Malignant neoplasm of unspecified part of unspecified bronchus or lung; M86.671 Other chronic osteomyelitis, right ankle and foot; J44.9 Chronic obstructive pulmonary disease, unspecified | CPT/HCPCS: 97597 ==

== ENCOUNTER → 2019-07-21 13:14 | Outpatient (CLI) | payer MEDICARE, MEDICAID, SELFPAY | PROVIDERS: Family Provider Physician Assistant; PCP Physician Assistant; Visit Provider Family Medicine | DX: I70.235 Atherosclerosis of native arteries of right leg with ulceration of other part of foot (principal); M86.671 Other chronic osteomyelitis, right ankle and foot; S91.104A Unspecified open wound of right lesser toe(s) without damage to nail, initial encounter; C34.90 Malignant neoplasm of unspecified part of unspecified bronchus or lung | CPT/HCPCS: 97597 ==

== ENCOUNTER → 2019-08-11 13:00 | Outpatient (CLI) | payer MEDICARE, MEDICAID, SELFPAY | PROVIDERS: Family Provider Physician Assistant; PCP Physician Assistant; Visit Provider Family Medicine | DX: C34.90 Malignant neoplasm of unspecified part of unspecified bronchus or lung (principal); M86.671 Other chronic osteomyelitis, right ankle and foot; I70.201 Unspecified atherosclerosis of native arteries of extremities, right leg; S91.301A Unspecified open wound, right foot, initial encounter | CPT/HCPCS: 97597 ==

== ENCOUNTER → 2019-08-18 10:53 | Outpatient (CLI) | payer MEDICARE, MEDICAID, SELFPAY ==
[2019-08-18 11:18] LABS: Add Manual Diff / Slide Review NO; Basophils Absolute Auto 100 /uL (0-100); Basophils Percent Auto 0.8 % (0-2); Eosinophils Absolute Auto 300 /uL (0-450); Eosinophils Percent Auto 3.9 % (2-4); Hematocrit 39.1 % (36-46); Hemoglobin 13.6 g/dL (12.0-16.0); Lymphocytes Absolute Auto 1900 /uL (1100-4500); Lymphocytes Percent Auto 26.8 % (25-40); Mean Corpuscular HGB Conc 34.7 % (30-36); Mean Corpuscular Volume 92.3 fL (80-100); Monocytes Absolute Auto 700 /uL (0-900); Monocytes Percent Auto 10.2 % (3-14); Neutrophils Absolute Auto 4200 /uL (1500-7000); Neutrophils Percent Auto 58.3 % (50-75); Platelet Count 238 X10^3/uL (150-400); Red Blood Cell Count 4.24 X10^6/uL (4.0-5.2); Red Cell Distribution Width 12.8 % (11.6-14.8); White Blood Cell Count 7.1 X10^3/uL (4.5-11.0)
--- NOTE | 2019-08-18 11:21 | DI.CT.S_ITS ---
PROCEDURE: CT CHEST ABD PEL WO CON INDICATIONS: lung cancer TECHNIQUE: After the administration of oral contrast, 5 mm thick sections acquired from the lung apices to the symphysis pubis. 5 mm thick coronal and sagittal reformats acquired, with additional 7 mm coronal MIP reformats through the lungs. For radiation dose reduction, the following was used: automated exposure control, adjustment of mA and/or kV according to patient size. COMPARISON: [facility], , CT ANGIO CHEST, 01/10/2019, 18:58. [place], [place], PET NECK TO MID THIGH, 06/09/2018, 13:27. [facility], CT, CT CHEST ABD PEL W CON, 05/14/2018, 11:17. [facility], , CT THORAX WITH CONTRAST, 04/23/2018, 13:26. [facility], CT, CT CHEST ABDOMEN W CON, 10/28/2018, 11:53. [place], [place], CT PET CT FUSION SKULL 2 THIGH, 01/26/2019, 13:53. [facility], CT, CT CHEST ABD PEL W CON, 04/15/2019, 13:45. FINDINGS: Image quality: Suboptimal due to lack of intravenous contrast. CHEST: Lungs and pleura: There is a scarlike density and atelectasis in the right upper lobe. Soft tissue fullness in the right hilum and paratracheal area appears unchanged. Moderate to severe centrilobular emphysema. No acute pulmonary opacities. No pleural effusions or pneumothorax. Central and peripheral airways are patent are normal in caliber. Mediastinum: Heart size is normal. No pericardial effusion. No mediastinal adenopathy by CT size criteria. Thoracic aorta and central pulmonary arteries are normal in size. Esophagus is normal in caliber. No hiatal hernia. Chest wall: No axillary or supraclavicular adenopathy by size criteria. Thyroid gland is normal. There is a Port-A-Cath on the left with tip in SVC. ABDOMEN: Solid organs: There is a 3.4 x 6.4 cm lentiform cystic mass in the posterior right hepatic lobe along the hepatic capsule, unchanged in size. Liver is normal in size. Gallbladder is normal. Pancreas is normal in contours. Spleen is normal in size. No adrenal nodules. Both kidneys are normal in size, without hydronephrosis or nephrolithiasis. Peritoneum and bowel: There is appearance of thickening of the cecum, ascending colon and transverse colon, as well as the distal ileum. No free fluid or air. Nodes and vessels: No retroperitoneal or mesenteric adenopathy by size criteria. Aorta and inferior vena cava are normal in size. Miscellaneous: No ventral hernias. PELVIS: Genitourinary: Bladder wall thickness is normal. Normal appearance of uterus. No adnexal mass or pathological free fluid. Miscellaneous: No inguinal hernias or adenopathy. Bones: No suspicious bony lesions. No vertebral body compression fractures. Degenerative changes are noted in thoracic and lumbar spine. IMPRESSION: 1. Limited examination for tumor followup due to lack of IV contrast. 2. Scarlike density with associated atelectasis in the right upper lobe, unchanged from the last exam. 3. Moderate to severe centrilobular emphysema. 4. Appearance of thickening in cecum, ascending colon and transverse colon, as well as distal ileum, which may be infectious or inflammatory in etiology. Neoplasm is less likely. 5. A 3.4 x 6.4 cm cystic mass in the liver along the posterior hepatic capsule appears unchanged. Dictated by: Fuad Gallegos M.D. on 08/18/2019 at 12:10 Approved by: Fuad Gallegos M.D. on 08/18/2019 at 18:00
[2019-08-18 11:39] LABS: Alanine Aminotransferase 14 IU/L (<35); Albumin 4.9 g/dL (3.5-5.0); Albumin Globulin Ratio 1.6 (1.0-2.8); Alkaline Phosphatase 81 U/L (38-126); Aspartate Aminotransferase 31 IU/L (14-36); BUN Creatinine Ratio 22.4 (6-22); Bilirubin Total 0.5 mg/dL (0.2-1.3); Blood Urea Nitrogen 38 mg/dL (7-17); Carbon Dioxide 29 mmol/L (22-32); Chloride 102 mmol/L (98-107); Estimated Glomerular Filt Rate 30.8 mL/min (>60); Glucose 111 mg/dL (70-100); HEMOLYSIS < 15 (0-50); Sodium 140 mmol/L (137-145); Total Protein 7.9 g/dL (6.3-8.2)
[2019-08-18 11:40] LABS: Potassium 5.6 mmol/L (3.4-5.1)
== END ==
PROVIDERS: Family Provider Physician Assistant; PCP Physician Assistant; Visit Provider Internal Medicine Hematology & Oncology
DX: C34.91 Malignant neoplasm of unspecified part of right bronchus or lung (principal); J43.2 Centrilobular emphysema; K76.89 Other specified diseases of liver; D64.9 Anemia, unspecified
CPT/HCPCS: 36415; 71250; 74176; 80053; 85025

== ENCOUNTER → 2019-08-25 13:23 | Outpatient (CLI) | payer MEDICARE, MEDICAID, SELFPAY | PROVIDERS: Family Provider Physician Assistant; PCP Physician Assistant; Visit Provider Family Medicine | DX: I70.235 Atherosclerosis of native arteries of right leg with ulceration of other part of foot (principal); L97.516 Non-pressure chronic ulcer of other part of right foot with bone involvement without evidence of necrosis; C34.90 Malignant neoplasm of unspecified part of unspecified bronchus or lung; M86.671 Other chronic osteomyelitis, right ankle and foot | CPT/HCPCS: 99213 ==

== ENCOUNTER → 2019-09-08 13:00 | Outpatient (CLI) | payer MEDICARE, MEDICAID, SELFPAY | PROVIDERS: Family Provider Physician Assistant; PCP Physician Assistant; Visit Provider Family Medicine | DX: I70.235 Atherosclerosis of native arteries of right leg with ulceration of other part of foot (principal); M86.671 Other chronic osteomyelitis, right ankle and foot; S91.104A Unspecified open wound of right lesser toe(s) without damage to nail, initial encounter; J44.9 Chronic obstructive pulmonary disease, unspecified; I73.9 Peripheral vascular disease, unspecified; I10 Essential (primary) hypertension | CPT/HCPCS: 97597 ==

== ENCOUNTER → 2019-09-08 14:00 | Outpatient (CLI) | payer MEDICARE, MEDICAID, SELFPAY ==
[2019-09-08 14:24] LABS: Bacteria Urine None Seen; RBC Urine None Seen (0-5/HPF); WBC Urine None Seen (0-5/HPF)
[2019-09-08 14:56] LABS: Appearance Urine UA CLEAR; Bilirubin Urine UA NEGATIVE (NEGATIVE); Color Urine UA YELLOW; Glucose Urine UA NEGATIVE (Negative); Ketones Urine UA NEGATIVE (NEGATIVE); Leukocyte Esterase Urine UA NEGATIVE (NEGATIVE); Nitrite Urine UA NEGATIVE (Negative); Occult Blood Urine UA NEGATIVE (Negative); Protein Urine UA NEGATIVE (Negative); Specific Gravity Urine UA <=1.005 (1.000-1.035); Urobilinogen Urine UA 0.2 E.U./dL (0.2)
[2019-09-08 15:00] LABS: Add Manual Diff / Slide Review NO; Basophils Absolute Auto 0 /uL (0-100); Basophils Percent Auto 0.6 % (0-2); Eosinophils Absolute Auto 300 /uL (0-450); Eosinophils Percent Auto 5.3 % (2-4); Hematocrit 36.1 % (36-46); Hemoglobin 12.3 g/dL (12.0-16.0); Lymphocytes Absolute Auto 1600 /uL (1100-4500); Lymphocytes Percent Auto 30.2 % (25-40); Mean Corpuscular Hemoglobin 31.7 PG (26-34); Mean Corpuscular Volume 93.3 fL (80-100); Monocytes Absolute Auto 400 /uL (0-900); Monocytes Percent Auto 8.5 % (3-14); Neutrophils Absolute Auto 2900 /uL (1500-7000); Neutrophils Percent Auto 55.4 % (50-75); Platelet Count 252 X10^3/uL (150-400); Red Blood Cell Count 3.87 X10^6/uL (4.0-5.2); Red Cell Distribution Width 12.8 % (11.6-14.8); White Blood Cell Count 5.2 X10^3/uL (4.5-11.0)
[2019-09-08 15:13] LABS: Culture Indicated Urine Cult Not Indicated; Urine Comments Microscopic Normal
[2019-09-08 15:47] LABS: HEMOLYSIS < 15 (0-50)
[2019-09-08 15:52] LABS: Alanine Aminotransferase 17 IU/L (<35); Albumin 4.7 g/dL (3.5-5.0); Albumin Globulin Ratio 1.9 (1.0-2.8); Alkaline Phosphatase 64 U/L (38-126); Aspartate Aminotransferase 35 IU/L (14-36); BUN Creatinine Ratio 19.2 (6-22); Bilirubin Total 0.3 mg/dL (0.2-1.3); Blood Urea Nitrogen 23 mg/dL (7-17); Calcium 9.8 mg/dL (8.4-10.2); Carbon Dioxide 30 mmol/L (22-32); Chloride 97 mmol/L (98-107); Globulin 2.5 g/dL (1.7-4.1); Glucose 85 mg/dL (70-100); Potassium 4.4 mmol/L (3.4-5.1); Sodium 135 mmol/L (137-145); Total Protein 7.2 g/dL (6.3-8.2)
[2019-09-08 15:57] LABS: Erythrocyte Sedimentation Rate 24 MM/HR (0-20)
[2019-09-08 16:13] LABS: C-Reactive Protein Quant < 0.5 mg/dL (<1.0)
[2019-09-08 16:29] LABS: Hepatitis B Surface Antigen NEGATIVE s/c (NEGATIVE)
[2019-09-08 16:53] LABS: Hep C Virus Ab w/Reflex Quant NEGATIVE s/c (NEGATIVE)
[2019-09-08 17:35] LABS: Rheumatoid Factor < 8.6 IU/mL (<12.0)
[2019-09-10 14:47] LABS: Complement Total CH50 > 60 U/mL (31-60)
[2019-09-11 08:46] LABS: ANA Screen, IFA NEGATIVE (NEGATIVE)
[2019-09-12 18:59] LABS: RPR Screen Nonreactive (Nonreactive)
[2019-09-12 20:50] LABS: Albumin 4.5 g/dL (3.8-4.8); Alpha 1 Globulin 0.3 g/dL (0.2-0.3); Alpha 2 Globulin 0.8 g/dL (0.5-0.9); Beta 1 Globulin 0.4 g/dL (0.4-0.6); Gamma Globulin 0.9 g/dL (0.8-1.7); Protein, Total 7.2 g/dL (6.1-8.1)
[2019-09-12 23:24] LABS: ANCA Screen NEGATIVE (NEGATIVE)
[2019-09-13 13:46] LABS: Complement C3 106 mg/dL (83-193)
== END ==
PROVIDERS: PCP Physician Assistant; Visit Provider Family Medicine
DX: R23.1 Pallor (principal); R21 Rash and other nonspecific skin eruption; L97.511 Non-pressure chronic ulcer of other part of right foot limited to breakdown of skin
CPT/HCPCS: 36415; 80053; 81001; 82585; 82595; 84155; 84165; 85025; 85651; 86021; 86038; 86140; 86160; 86162; 86430; 86592; 86803; 87340

== ENCOUNTER 2019-09-23 07:02 | Day surgery (SDC) | payer MEDICARE, MEDICAID, SELFPAY ==
[2019-09-23] VITALS (10 sets, daily range): BP systolic 89–170; BP diastolic 49–82; PULSE 66–86; RESP 9–22; TEMP 36.6–37.4; O2SAT 94–98; BMI 16.2
[2019-09-23] MEDS: SODIUM CHLORIDE 0.9% 1,000 ML 200 ML IV (07:36)
--- NOTE | 2019-09-23 08:40 | PM.HP.1 ---
History of Present Illness History of Present Illness Date Patient Seen: 09/23/19 Time Patient Seen: 08:40 Chief complaint: 36001 Narrative: This is a 59-year-old woman who has never had a screening colonoscopy. She has been sick with lung cancer for which she has been treated with chemotherapy and has been told she is in remission. She denies any history of heart attack or stroke. She does have COPD, and is on metoprolol for blood pressure, and oxycodone and gabapentin for pain. She denies any personal history of melena or hematochezia, or any significant family history of colon polyps or colon cancers. On a recent CT scan she had some nonspecific colon thickening, which was not there on the scan which was a few months prior. ROS: The patient reports shortness of breath, arthritis pain, urinary frequency and urgency, fibromyalgia. Thirteen system review is otherwise negative other than as mentioned below and in HPI. PE: GENERAL: Well groomed and cooperative. Very thin and appears older than stated age. Answers questions promptly and appropriately. Vital signs noted. HENT: Normocephalic, atraumatic. Hearing intact. Oral mucosa is pink and moist. EYES: Conjunctiva pink, sclera white, no periorbital swelling. CARDIOVASCULAR: Regular rate. No pedal edema. RESPIRATORY: Non-tachypneic, breathing comfortably on room air. GASTROINTESTINAL: Abdomen soft and non-distended GENITALURINARY: No flank tenderness. MUSCULOSKELETAL: Equal tone and mass bilaterally. SKIN: Warm, dry, soft, appropriate color for ethnicity. No other lesions, rashes, or wounds. NEURO: Alert and Oriented X 3. No gross sensory deficits, or cognitive issues. PSYCH: Appropriate affect and mood. Patient History Medical History Adenocarcinoma of right lung (Acute) Anemia (Acute) Arthritis (Acute) Benign essential tremor (Acute) Bipolar disorder with depression (Acute) COPD (chronic obstructive pulmonary disease) (Acute) Cough (Acute) Degenerative disc disease (Acute) Depression (Acute) Emphysema of lung (Acute) Fibromyalgia (Acute) Hand pain (Acute) History of pneumonia (Acute) History of seizures (Acute) Hypertension (Acute) Mediastinal lymphadenopathy (Acute) Myofascial pain syndrome (Acute) Osteoarthritis (Acute) Pain (Acute) Raynauds syndrome (Acute) Sciatica (Acute) Shortness of breath (Acute) Surgical History History of bilateral tubal ligation (Acute) History of intestinal surgery (Acute) History of liver biopsy (Acute) Status post bronchoscopy with biopsy (Acute) Family & Social History Family History Father Hypertension Diabetes mellitus Cancer Mother Stroke Grandmother Cancer Social History: household members friend(s) Tobacco & Substance use: Smoking Status Former smoker Meds Home Medications and Allergies Home Medications Medication Instructions Recorded Confirmed Type citalopram 40 mg PO DAILY 05/11/18 09/23/19 History gabapentin 600 mg PO TID 05/11/18 09/23/19 History meloxicam 15 mg PO DAILY PRN 05/11/18 09/23/19 History quetiapine [Seroquel] 200 mg PO QDRHS 05/11/18 09/23/19 History melatonin 30 mg PO BEDTIME PRN 06/10/18 09/23/19 History Multi 08/22/19 History amlodipine 5 mg PO DAILY 08/22/19 09/23/19 History horse chestnut mg PO 08/22/19 08/22/19 History lysine [L-Lysine] 500 mg PO DAILY 08/22/19 08/22/19 History metoprolol tartrate 100 mg PO DAILY 08/22/19 09/23/19 History vitamin B complex 08/22/19 History oxycodone 5 mg PO Q6H PRN #100 tab 09/12/19 09/23/19 Rx Allergies Allergy/AdvReac Type Severity Reaction Status Date / Time aloe Allergy Intermediate Rash Verified 09/23/19 08:00 Sulfa (Sulfonamide Allergy Intermediate Rash Verified 09/23/19 08:00 Antibiotics) sulfamethoxazole Allergy Intermediate Rash Verified 09/23/19 08:00 [From Septra] trimethoprim [From Junra] Allergy Intermediate Rash Verified 09/23/19 08:00 Bleach (Sodium Hypochlorite) AdvReac Unknown Rash Verified 09/23/19 08:00 Exam Vital Signs (past 8 hours): - 09/23/19 07:35 Temperature 98 F Pulse Rate 86 Respiratory Rate 22 Blood Pressure 170/82 H Pulse Oximetry 96 Oxygen Delivery Method Room Air Assessment & Plan Assessment and plan (1) Adenocarcinoma of right lung: Current visit: No Status: Acute (2) Tremor: Current visit: No Status: Acute (3) COPD (chronic obstructive pulmonary disease): Current visit: No Status: Chronic (4) Seroma after procedure: Current visit: No Status: Acute (5) Hypertension: Current visit: No Status: Acute (6) Colon wall thickening: Current visit: No Status: Acute (7) At average risk for colon cancer: Problem details: Risks and benefits of screening colonoscopy and polypectomy were discussed with the patient including risk of bleeding, perforation, need for additional procedures, risks of anesthesia. The patient desires to proceed with her colonoscopy. Current visit: Yes Status: Acute (8) Encounter for screening colonoscopy: Current visit: Yes Status: Acute Quality VTE Deep Vein Thrombosis/Pulmonary Embolism Present on Admission: No
[2019-09-23] MEDS: MIDAZOLAM 5 MG/5 ML VIAL IV (09:14)
[2019-09-23] MEDS: fentaNYL 250 MCG/5 ML INJ IV (09:14)
--- NOTE | 2019-09-23 09:15 | PM.OP.ENDO ---
Operative Date/Time/Diagnoses Date of procedure: 09/23/19 Time of procedure: 09:15 Pre-op diagnosis: average risk for colon cancer Post-op diagnosis: same Procedure & Clinicians Study performed: screening colonoscopy Same procedure as scheduled: Yes Indications: Average risk for colon cancer, above age 50 and never had a colonoscopy Procedure Notes SCOAP/Timeout: Performed Procedure in detail: The patient was brought to the room and placed in left lateral decubitus position with all bony prominences padded. A time-out was performed and then the patient was given procedural sedation starting with 2 mg of Versed and 100 mcg of fentanyl. Total of 3 mg of Versed and 150 micro g of fentanyl were given for the entire procedure. Vitals were monitored throughout the procedure and remained stable. Once adequately sedated the procedure was begun. A rectal exam was performed revealing no abnormalities. The colonoscope was then introduced to the rectum and advanced to the cecum in the usual fashion. The colon was very tortuous and required multiple maneuvers to reach the cecum safely.The cecum was identified by the appendiceal orifice, the mucosal tri-fold, and the ileocecal valve. The scope was then retracted while rotating side to side and examining each mucosal fold. No abnormal mucosa or polyps were seen. At the conclusion of the procedure retroflexion was performed and small grade 1-2 internal hemorrhoids without stigmata of bleeding were seen. The scope was then withdrawn from the rectum the procedure was concluded. The patient tolerated the procedure well and was transferred to the PACU in stable condition. Scope withdrawal time: 9 Sedation minutes: 24 Findings: internal hemorrhoids (Low-grade) Specimen(s): none sent Complications: none Impression: Normal colon Post-procedure Recommendations: Colonscopy in 10 years Follow up: as needed Disposition: PACU
--- NOTE | 2019-09-23 09:48 | SUR.PHASEI ---
Continues sleeping, resp unlabored, skin warm and dry.
--- NOTE | 2019-09-23 09:56 | SUR.PHASEI ---
HOB elevated, juice given; tolerating well
--- NOTE | 2019-09-23 12:19 | SUR.PHASEII ---
1015 Denies pain/discomfort, light-headedness. Awake and oriented, stable on feet, ambulated to the bathroom, pleasant,
--- NOTE | 2019-09-23 12:24 | SUR.PHASEII ---
1002 late entry IV access dc'd by Tony Camargo RN under supervision per protocol
== END 2019-09-23 10:15 | disposition home or self-care (01) ==
PROVIDERS: PCP Physician Assistant; Visit Provider Surgery
PROC: 0DJD8ZZ Inspection of Lower Intestinal Tract, Via Natural or Artificial Opening Endoscopic (ICD-10-PCS; CPT 45378; principal; 2019-09-23 08:30)
DX: Z12.11 Encounter for screening for malignant neoplasm of colon (principal); I10 Essential (primary) hypertension; J44.9 Chronic obstructive pulmonary disease, unspecified; R25.1 Tremor, unspecified; K64.0 First degree hemorrhoids
CPT/HCPCS: G0121; 99152; J2250; J3010

== ENCOUNTER → 2019-10-13 13:31 | Outpatient (CLI) | payer MEDICARE, MEDICAID, SELFPAY | PROVIDERS: PCP Physician Assistant; Visit Provider Family Medicine | DX: M86.671 Other chronic osteomyelitis, right ankle and foot (principal); L97.511 Non-pressure chronic ulcer of other part of right foot limited to breakdown of skin; I73.9 Peripheral vascular disease, unspecified; C34.90 Malignant neoplasm of unspecified part of unspecified bronchus or lung; J44.9 Chronic obstructive pulmonary disease, unspecified; I10 Essential (primary) hypertension | CPT/HCPCS: 99213 ==

== ENCOUNTER → 2019-11-16 14:30 | Outpatient (CLI) | payer MEDICARE, MEDICAID, SELFPAY ==
--- NOTE | 2019-11-16 14:32 | DI.CT.S_ITS ---
PROCEDURE: CT CHEST ABD PEL W CON INDICATIONS: lung cancer, stage IV TECHNIQUE: After the administration of oral and intravenous contrast, 5 mm thick sections acquired from the lung apices to the symphysis. 5 mm coronal and sagittal reformats were performed, with additional 7 mm coronal MIP reformats through the lungs. For radiation dose reduction, the following was used: automated exposure control, adjustment of mA and/or kV according to patient size. COMPARISON: [facility], CT, CT CHEST ABD PEL WO CON, 08/18/2019, 11:53. [facility], CT, CT CHEST ABD PEL W CON, 04/15/2019, 13:45. FINDINGS: Image quality: Excellent. CHEST: Lungs and pleura: Advanced centrilobular emphysema is again seen. Previously described scarring/residual mass in medial aspect of right upper lobe remains unchanged in size and appearance. Bibasilar scarring/atelectasis is seen. No pleural effusions or pneumothorax. Central and peripheral airways appear patent and normal in caliber. Mediastinum: Heart size is normal. No pericardial effusion. No mediastinal or hilar adenopathy by size criteria. Thoracic aorta and central pulmonary arteries are normal in size. Esophagus is normal in caliber. No hiatal hernia. Chest wall: No axillary or supraclavicular adenopathy by size criteria. Thyroid gland is within normal limits. Left chest wall Port-A-Cath tip is in SVC. ABDOMEN: Solid organs: Liver is normal in size. Previously described 3.4 x 6.4 cm low density collection/lesion involving inferior margin of right hepatic lobe now measures 6.3 x 3.6 cm in size and is essentially unchanged in appearance. No new hepatic lesion is identified. Gallbladder is within normal limits. Biliary system is non dilated. Pancreas enhances normally. Spleen is normal in size and enhancement. No adrenal nodules. Kidneys demonstrate normal size and enhancement, without hydronephrosis. Peritoneum and bowel: Bowel loops demonstrate normal wall thickness and caliber. No free fluid or air. Questionable colonic wall thickening, particularly involving descending colon and sigmoid colon. Nodes and vessels: No retroperitoneal or mesenteric adenopathy by size criteria. Aorta and inferior vena cava are normal in size. Miscellaneous: No ventral hernias. PELVIS: Genitourinary: Bladder wall thickness is normal. Miscellaneous: No inguinal hernias or adenopathy. Bones: No suspicious bony lesions. No vertebral body compression fractures. Degenerative disc disease throughout thoracic and lumbar spine is again seen. Osteoarthritic changes are noted throughout bony pelvis. IMPRESSION: 1. Essentially stable appearing scarring/atelectasis in right upper lobe not significantly changed from prior study. 2. Moderate to severe centrilobular emphysema. Airway is patent. 3. No gross lymphadenopathy is seen in chest, abdomen or pelvis. 4. Cystic mass again noted involving posterior inferior right hepatic lobe and measures 6.3 x 3.6 cm in size, essentially unchanged from prior study. No new hepatic lesion is noted. 5. Mild descending colon and sigmoid colon wall thickening, and may be due to underdistention. Finding has improved compared to previous study. No free fluid or free air. Dictated by: Jose De Jesus Lopez M.D. on 11/16/2019 at 17:25 Approved by: Jose De Jesus Lopez M.D. on 11/16/2019 at 17:51
== END ==
PROVIDERS: PCP Physician Assistant; Referring Provider Internal Medicine Hematology & Oncology; Visit Provider Internal Medicine Hematology & Oncology
DX: C34.91 Malignant neoplasm of unspecified part of right bronchus or lung (principal); J43.2 Centrilobular emphysema; K76.9 Liver disease, unspecified; D64.9 Anemia, unspecified
CPT/HCPCS: 71260; 74177; Q9967

== ENCOUNTER → 2019-11-23 13:03 | Outpatient (CLI) | payer MEDICARE, MEDICAID, SELFPAY | PROVIDERS: PCP Physician Assistant; Referring Provider Internal Medicine Hematology & Oncology; Visit Provider Family Medicine | DX: I70.235 Atherosclerosis of native arteries of right leg with ulceration of other part of foot (principal); L97.511 Non-pressure chronic ulcer of other part of right foot limited to breakdown of skin; E43 Unspecified severe protein-calorie malnutrition | CPT/HCPCS: 99214 ==

== ENCOUNTER → 2019-12-14 12:54 | Outpatient (CLI) | payer MEDICARE, MEDICAID, SELFPAY | PROVIDERS: PCP Physician Assistant; Referring Provider Physician Assistant; Visit Provider Family Medicine | DX: I73.9 Peripheral vascular disease, unspecified (principal); L97.511 Non-pressure chronic ulcer of other part of right foot limited to breakdown of skin | CPT/HCPCS: 99213 ==

== ENCOUNTER → 2020-04-10 12:56 | Outpatient (CLI) | payer MEDICARE, MEDICAID, SELFPAY ==
--- NOTE | 2020-04-10 14:08 | DI.CT.S_ITS ---
PROCEDURE: CT CHEST ABD PEL W CON INDICATIONS: Restaging lung cancer TECHNIQUE: After the administration of oral and intravenous contrast, 5 mm thick sections acquired from the lung apices to the symphysis. 5 mm coronal and sagittal reformats were performed, with additional 7 mm coronal MIP reformats through the lungs. For radiation dose reduction, the following was used: automated exposure control, adjustment of mA and/or kV according to patient size. COMPARISON: [facility], CT, CT CHEST ABD PEL W CON, 11/16/2019, 15:31. [facility], CT, CT CHEST ABD PEL W CON, 04/15/2019, 13:45. FINDINGS: Image quality: Excellent. CHEST: Lungs and pleura: No acute airspace opacities. No pleural effusions or pneumothorax. Note is again made of right upper lobe lung parenchymal scarring in the area of reported prior treated pulmonary malignancy. Moderately severe centrilobular emphysema is again noted, indicating long-standing smoking history. No new pulmonary mass lesion has developed Central and peripheral airways appear patent and normal in caliber. Mediastinum: Heart size is normal. No pericardial effusion. No mediastinal or hilar adenopathy by size criteria. Thoracic aorta and central pulmonary arteries are normal in size. Esophagus is normal in caliber. No hiatal hernia. Port-A-Cath from a left-sided approach extends across the midline into the superior vena cava. Chest wall: No axillary or supraclavicular adenopathy by size criteria. Thyroid gland appears normal where well seen. ABDOMEN: Solid organs: Liver is stable in size and enhancement and the right posterior subdiaphragmatic cyst has not changed over time and contains no identifiable solid component. Gallbladder appears normal. Biliary system is non dilated. Pancreas enhances normally. Spleen is normal in size and enhancement. No adrenal nodules. Kidneys demonstrate normal size and enhancement, without hydronephrosis. Peritoneum and bowel: Bowel loops demonstrate normal wall thickness and caliber. No free fluid or air. Nodes and vessels: No retroperitoneal or mesenteric adenopathy by size criteria. Aorta and inferior vena cava are normal in size. Miscellaneous: No ventral hernias. PELVIS: Genitourinary: Bladder wall thickness is normal. Miscellaneous: No inguinal hernias or adenopathy. Bones: No suspicious bony lesions. No vertebral body compression fractures. IMPRESSION: Stable post treatment changes with scarring right upper lobe. Moderately severe to severe centrilobular emphysema again noted. No evidence of development of metastatic disease. No new mass lesion within the lung parenchyma has developed. Dictated by: Henri Dobbs M.D. on 04/10/2020 at 14:43 Approved by: Henri Dobbs M.D. on 04/10/2020 at 14:52
== END ==
PROVIDERS: PCP Physician Assistant; Referring Provider Internal Medicine Hematology & Oncology; Visit Provider Internal Medicine Hematology & Oncology
DX: C34.91 Malignant neoplasm of unspecified part of right bronchus or lung (principal); J43.2 Centrilobular emphysema; D64.9 Anemia, unspecified
CPT/HCPCS: 71260; 74177; Q9967

== ENCOUNTER → 2020-06-02 11:52 | Outpatient (CLI) | payer MEDICARE, MEDICAID, SELFPAY ==
[2020-06-03 09:18] LABS: COVID19 Sendout Not Detected (Not Detect)
== END ==
PROVIDERS: PCP Physician Assistant; Visit Provider Physician Assistant
DX: Z11.59 Encounter for screening for other viral diseases (principal)
CPT/HCPCS: 87635

== ENCOUNTER 2020-06-05 08:16 | Day surgery (SDC) | payer MEDICARE, SELFPAY ==
[2020-06-01 13:58] VITALS: BMI 18.5
[2020-06-05] VITALS (12 sets, daily range): BP systolic 66–181; BP diastolic 47–101; PULSE 63–82; RESP 8–16; TEMP 35.6–36.7; O2SAT 89–100; BMI 17.9
--- NOTE | 2020-06-05 09:16 | PM.HP.1 ---
History of Present Illness History of Present Illness Date Patient Seen: 06/05/20 Time Patient Seen: 09:16 Chief complaint: SDC Narrative: This is a 60-year-old woman with a history of stage 4 right lung cancer who has completed chemotherapy here for Port-A-Cath removal. Catheter was placed in 2018 has had no issues with infection or clot within the port. Patient History Medical History Adenocarcinoma of right lung (Acute) Anemia (Acute) Arthritis (Acute) Benign essential tremor (Acute) Bipolar disorder with depression (Acute) COPD (chronic obstructive pulmonary disease) (Acute) Cough (Acute) Degenerative disc disease (Acute) Depression (Acute) Emphysema of lung (Acute) Fibromyalgia (Acute) Hand pain (Acute) History of pneumonia (Acute) History of seizures (Acute) Hypertension (Acute) Mediastinal lymphadenopathy (Acute) Myofascial pain syndrome (Acute) Osteoarthritis (Acute) Pain (Acute) Port-A-Cath in place (Acute 07/13/18) Raynauds syndrome (Acute) Sciatica (Acute) Shortness of breath (Acute) Surgical History History of bilateral tubal ligation (Acute) History of bronchoscopy (Acute 06/03/18) History of intestinal surgery (Acute) History of liver biopsy (Acute) Hx of lymph node biopsy (Acute 07/14/18) Status post bronchoscopy with biopsy (Acute) Family & Social History Family History Father Hypertension Diabetes mellitus Cancer Mother Stroke Grandmother Cancer Social History: household members friend(s) Tobacco & Substance use: Tobacco type cigarettes Smoking Status Current some day smoker alcohol intake current alcohol intake frequency a few times a week Substance Use Type marijuana Meds Home Medications and Allergies Home Medications Medication Instructions Recorded Confirmed Type citalopram 40 mg PO DAILY 05/11/18 06/01/20 History gabapentin 600 mg PO TID 05/11/18 06/01/20 History meloxicam 15 mg PO DAILY PRN 05/11/18 06/01/20 History quetiapine [Seroquel] 200 mg PO QDRHS 05/11/18 06/01/20 History Multi 1 tab DAILY 08/22/19 06/01/20 History amlodipine 10 mg PO DAILY 08/22/19 06/05/20 History lysine [L-Lysine] 500 mg PO DAILY 08/22/19 06/01/20 History metoprolol tartrate 100 mg PO DAILY 08/22/19 06/01/20 History vitamin B complex 1 tab DAILY 08/22/19 06/01/20 History Allergies Allergy/AdvReac Type Severity Reaction Status Date / Time aloe Allergy Intermediate Rash Verified 09/23/19 08:00 Sulfa (Sulfonamide Allergy Intermediate Rash Verified 09/23/19 08:00 Antibiotics) sulfamethoxazole Allergy Intermediate Rash Verified 09/23/19 08:00 [From ] trimethoprim [From ] Allergy Intermediate Rash Verified 09/23/19 08:00 Bleach (Sodium Hypochlorite) AdvReac Unknown Rash Verified 09/23/19 08:00 Review of Systems Review of Systems Narrative: A 10 point review of systems is negative except as noted in the HPI Exam Vital Signs (past 8 hours): - 06/05/20 08:55 Temperature 96.1 F L Pulse Rate 82 Respiratory Rate 16 Blood Pressure 181/101 H Pulse Oximetry 98 Oxygen Delivery Method Room Air Narrative Exam Narrative: General-no acute distress, thin adult woman HEENT-moist mucous membranes, no scleral icterus Neck-supple, no lymphadenopathy Chest- non labored respirations, clear to auscultation bilaterally. Left chest wall Port-A-Cath Cardiac-regular rate no peripheral edema. Abdomen-soft, nontender, non distended Extremities-warm, well perfused Neurological-alert and oriented, no focal deficits Assessment & Plan Assessment and plan (1) Port-A-Cath in place: Status: Acute Assessment & Plan narrative: 60 year old female with right lung cancer stage IV who's completed chemotherapy is here for Port-A-Cath removal. I described the technical nature of the procedure to her including the risks of bleeding infection air embolism. Questions have been answered she is in agreement with this plan will proceed to the operating room. COVID-19 COVID-19 status: Negative
[2020-06-05] MEDS: CEFAZOLIN 2 GM/100 ML FROZ.PIGGY IV (09:17)
--- NOTE | 2020-06-05 09:32 | SUR.OPER ---
Supine on padded OR bed, head on pillow, left arm tucked at side wi padded with gel, right arm secured on padded arm board at <90 degrees abduction, legs uncrossed, safety belt at thigh, tape over blanket over lower legs.
[2020-06-05] MEDS: BUPIVACAINE 0.25% (PF) VIAL 30 ML INJ (09:35)
--- NOTE | 2020-06-05 09:51 | PM.OP.1 ---
Operative Date/Time/Diagnoses Date of procedure: 06/05/20 Time of procedure: 09:51 Pre-op diagnosis: Port-A-Cath Post-op diagnosis: same Procedure & Clinicians Procedure: Port-A-Cath removal Same procedure as scheduled: Yes Indications: 60-year-old female with right lung cancer who has completed chemotherapy referred by Oncology for Port-A-Cath removal Surgeon: Marcelino Louis Click Yes if Unassisted: Yes Anesthesia Type: General Operative Notes Findings: Intact Port-A-Cath Specimen(s): none sent Estimated Blood Loss (mL): 10 Procedure in detail: Patient brought to the operating room placed supine on the table. Bilateral lower extremity compression devices were applied. She received 2 g of Ancef prior to skin incision. anesthesia was induced and she was intubated with an LMA. 0.25% bupivacaine was infiltrated in the skin overlying the Port-A-Cath in the left chest wall. Incision with the knife was made through the skin and subcutaneous tissues. The Port-A-Cath was grasped and the anchoring sutures were removed. A Vicryl suture was then placed around the insertion site of the catheter and this was tied down at that same time that the catheter was withdrawn. The specimen was passed off the field. The wound was irrigated hemostasis was achieved. The subcutaneous tissue was reapproximated using Vicryl suture and skin closed with running Monocryl suture followed by Dermabond and Steri-Strips. Patient emerged from anesthesia and was transferred to the recovery room in stable condition. Complications: none Post-operative Condition: stable Disposition: same day surgery
--- NOTE | 2020-06-05 10:59 | SUR.PHASEI ---
Pt received to PACU at 0954. Report received from Dr Maurice and circulating RN. Pt requiring jaw thrust to maintain ventilation. Dr Maurice aware of BP with no orders at this time. Oral airway inserted at 0957 and placed on 6LNC via oral airway. BP responsive to IVF. Oral airway out at 1013. Pt denies pain, chest pain, and SOB. !045 - Pt transferred to Phase II bay 8 awake and in stable condition. Report given to QUINTIN Willson.
== END 2020-06-05 11:11 | disposition home or self-care (01) ==
PROVIDERS: PCP Physician Assistant; Referring Provider Physician Assistant; Visit Provider Surgery
PROC: (CPT 36590; principal; 2020-06-05 09:45)
DX: Z45.2 Encounter for adjustment and management of vascular access device (principal); C34.91 Malignant neoplasm of unspecified part of right bronchus or lung; F17.210 Nicotine dependence, cigarettes, uncomplicated
CPT/HCPCS: 36590; J0690; J2250; J2704; J3010

== ENCOUNTER → 2020-08-22 10:03 | Outpatient (CLI) | payer MEDICARE, SELFPAY ==
[2020-08-22 10:34] LABS: Add Manual Diff / Slide Review NO; Basophils Absolute Auto 0 /uL (0-100); Basophils Percent Auto 0.7 % (0-2); Eosinophils Absolute Auto 300 /uL (0-450); Eosinophils Percent Auto 4.9 % (2-4); Hematocrit 40.3 % (36-46); Hemoglobin 13.6 g/dL (12.0-16.0); Lymphocytes Absolute Auto 1600 /uL (1100-4500); Lymphocytes Percent Auto 26.1 % (25-40); Mean Corpuscular HGB Conc 33.8 % (30-36); Mean Corpuscular Hemoglobin 30.9 PG (26-34); Mean Corpuscular Volume 91.7 fL (80-100); Monocytes Absolute Auto 600 /uL (0-900); Monocytes Percent Auto 8.9 % (3-14); Neutrophils Absolute Auto 3700 /uL (1500-7000); Neutrophils Percent Auto 59.4 % (50-75); Platelet Count 312 X10^3/uL (150-400); Red Cell Distribution Width 13.7 % (11.6-14.8); White Blood Cell Count 6.3 X10^3/uL (4.5-11.0)
[2020-08-22 10:46] LABS: Alanine Aminotransferase 16 IU/L (<35); Albumin 4.7 g/dL (3.5-5.0); Albumin Globulin Ratio 1.4 (1.0-2.8); Alkaline Phosphatase 75 U/L (38-126); Aspartate Aminotransferase 31 IU/L (14-36); BUN Creatinine Ratio 19.1 (6-22); Bilirubin Total 0.4 mg/dL (0.2-1.3); Blood Urea Nitrogen 21 mg/dL (7-17); Calcium 9.7 mg/dL (8.4-10.2); Carbon Dioxide 32 mmol/L (22-32); Chloride 100 mmol/L (98-107); Estimated Glomerular Filt Rate 50.7 mL/min (>60); Globulin 3.4 g/dL (1.7-4.1); Glucose 79 mg/dL (80-110); HEMOLYSIS < 15 (0-50); Potassium 4.5 mmol/L (3.4-5.1); Sodium 134 mmol/L (137-145); Total Protein 8.1 g/dL (6.3-8.2)
--- NOTE | 2020-08-22 12:05 | DI.CT.S_ITS ---
PROCEDURE: CT CHEST ABD PEL W CON INDICATIONS: Follow-up metastatic lung cancer TECHNIQUE: After the administration of oral and intravenous contrast, 5 mm thick sections acquired from the lung apices to the symphysis. 5 mm coronal and sagittal reformats were performed, with additional 7 mm coronal MIP reformats through the lungs. For radiation dose reduction, the following was used: automated exposure control, adjustment of mA and/or kV according to patient size. COMPARISON: [facility], CT, CT CHEST ABD PEL W CON, 05/14/2018, 11:17. [facility], [place], PET NECK TO MID THIGH, 06/09/2018, 13:27. [facility], CT, CT CHEST ABD PEL W CON, 04/10/2020, 13:45. FINDINGS: Image quality: Excellent. CHEST: Lungs and pleura: Right upper lobe scarring, unchanged. No recurrent mass. No new or enlarging pulmonary nodules. Calcified granulomas in the left upper lobe. Moderate to severe emphysematous change. Mild atelectasis at the right lung base. No pleural effusions or pneumothorax. Central and peripheral airways appear patent and normal in caliber. Mediastinum: Heart size is normal. No pericardial effusion. No enlarging mediastinal or hilar lymph nodes. Thoracic aorta and central pulmonary arteries are normal in size. No central pulmonary embolism. Esophagus is normal in caliber. No hiatal hernia. Chest wall: Postsurgical change in the right axilla. No axillary or supraclavicular adenopathy by size criteria. Thyroid gland is unremarkable. ABDOMEN: Solid organs: Liver is normal in size and enhancement. Circumscribed hypodense lesion at segment 7 measuring 6.2 x 3.8 cm, (2/64), unchanged since 2018 and consistent with benign cysts. No new focal lesion. Gallbladder is unremarkable. No intrahepatic biliary ductal dilatation. CBD measures 0.9 cm and is mildly prominent, but is unchanged and tapers distally. Pancreas enhances normally. Spleen is normal in size and enhancement. Unchanged small splenule in the right pericolic gutter. No adrenal nodules. Kidneys demonstrate normal size and enhancement, without hydronephrosis. Unchanged tiny cyst at the inferior pole of the left kidney. Peritoneum and bowel: Bowel loops demonstrate normal wall thickness and caliber. No free fluid or air. Nodes and vessels: No retroperitoneal or mesenteric adenopathy by size criteria. Aorta and inferior vena cava are normal in size. Miscellaneous: No ventral hernias. PELVIS: Genitourinary: Bladder wall thickness is normal. Miscellaneous: No inguinal hernias or adenopathy. Bones: No suspicious bony lesions. No vertebral body compression fractures. IMPRESSION: 1. Right upper lobe scarring is unchanged. 2. No new or enlarging pulmonary nodules. 3. Postsurgical change in the right axilla. 4. No distant metastatic disease identified. 5. No aggressive appearing osseous lesion. Dictated by: Pedro Bailey M.D. on 08/22/2020 at 11:57 Approved by: Pedro Bailey M.D. on 08/22/2020 at 12:15
== END ==
PROVIDERS: PCP Physician Assistant; Referring Provider Physician Assistant; Visit Provider Internal Medicine
DX: C34.91 Malignant neoplasm of unspecified part of right bronchus or lung (principal); D64.9 Anemia, unspecified
CPT/HCPCS: 36415; 71260; 74177; 80053; 85025; Q9967

== ENCOUNTER → 2020-12-05 09:02 | Outpatient (CLI) | payer MEDICARE, SELFPAY ==
--- NOTE | 2020-12-05 09:49 | DI.CT.S_ITS ---
PROCEDURE: CT CHEST ABD PEL W CON INDICATIONS: Llung cancer, increasing weight loss, fatigue, anorexia TECHNIQUE: After the administration of oral and intravenous contrast, 5 mm thick sections acquired from the lung apices to the symphysis. 5 mm coronal and sagittal reformats were performed, with additional 7 mm coronal MIP reformats through the lungs. For radiation dose reduction, the following was used: automated exposure control, adjustment of mA and/or kV according to patient size. COMPARISON: [facility], CT, CT CHEST ABD PEL W CON, 11/16/2019, 15:31. [facility], CT, CT CHEST ABD PEL WO CON, 08/18/2019, 11:53. [facility], CT, CT CHEST ABD PEL W CON, 08/22/2020, 11:06. [facility], CT, CT CHEST ABD PEL W CON, 04/10/2020, 13:45. FINDINGS: Image quality: Excellent. CHEST: Lungs and pleura: No acute airspace opacities, but there is relatively severe emphysematous change with linear scarring involving the lungs bilaterally likely reflecting post treatment change and possible sequela of prior inflammatory events. No pleural effusions or pneumothorax. Central and peripheral airways appear patent and normal in caliber. Mediastinum: Heart size is normal. No pericardial effusion. No mediastinal or hilar adenopathy by size criteria. Thoracic aorta and central pulmonary arteries are normal in size. Esophagus is normal in caliber. No hiatal hernia. Chest wall: No axillary or supraclavicular adenopathy by size criteria. Thyroid gland appears normal where well seen. ABDOMEN: Solid organs: Liver is normal in size and enhancement. There is an ovoid cyst at the periphery of the right posterior hepatic segment, mid liver level, without private branch exchange repairer time. Gallbladder appears normal. Biliary system is non dilated. Pancreas enhances normally. Spleen is normal in size and enhancement. No adrenal nodules. Kidneys demonstrate normal size and enhancement, without hydronephrosis. Peritoneum and bowel: Bowel loops demonstrate normal wall thickness and caliber. No free fluid or air. Nodes and vessels: No retroperitoneal or mesenteric adenopathy by size criteria. Aorta and inferior vena cava are normal in size. Miscellaneous: No ventral hernias. PELVIS: Genitourinary: Bladder wall thickness is normal. Miscellaneous: No inguinal hernias or adenopathy. Bones: No suspicious bony lesions. No vertebral body compression fractures. IMPRESSION: No sign of recurrent neoplasm within the chest, no visualized evidence of metastatic disease. Stable appearance of a peripheral liver cyst noted at the right posterior hepatic segment. No adenopathy or osseous metastatic disease is seen. Dictated by: Henri Dobbs M.D. on 12/05/2020 at 14:39 Approved by: Henri Dobbs M.D. on 12/05/2020 at 14:43
== END ==
PROVIDERS: PCP Family Medicine; Referring Provider Internal Medicine; Visit Provider Internal Medicine
DX: C34.91 Malignant neoplasm of unspecified part of right bronchus or lung (principal); K76.89 Other specified diseases of liver; R53.83 Other fatigue; R63.4 Abnormal weight loss; R63.0 Anorexia
CPT/HCPCS: 71260; 74177; Q9967

== ENCOUNTER → 2023-01-14 09:35 | Outpatient (CLI) | payer OTHER, MEDICAID, SELFPAY ==
--- NOTE | 2023-01-14 09:36 | DI.CT.S_ITS ---
PROCEDURE: CT CHEST ABD PEL W CON INDICATIONS: lung cancer monitoring TECHNIQUE: After the administration of oral and intravenous contrast, axial sections acquired from the supraclavicular neck to the pubic symphysis. Coronal and sagittal reformats were performed. For radiation dose reduction, the following was used: automated exposure control, adjustment of mA and/or kV according to patient size. COMPARISON: [facility], CT, CT CHEST ABD PEL W CON, 12/05/2020, 10:09. CT 05/14/2018, 01/10/2019 FINDINGS: Image quality: Excellent. CHEST: Lower Neck: No enlarged lymph nodes. Thyroid: Within normal limits. Axillae: No enlarged lymph nodes. Chest Wall: Unremarkable. Lungs and Airways: Posttreatment change in the right upper lobe, with lenticular pleural parenchymal band without associated nodularity. Confluent centrilobular emphysema. Calcified tree-in-bud nodules in the low anterior left upper lobe. No suspicious pulmonary nodules. Additional scattered calcified granuloma. Pleura: No pneumothorax or pleural effusions. Heart: Heart size is normal. No pericardial effusion. Marked coronary artery calcifications for age. Thoracic Vessels: The aorta and pulmonary arteries demonstrate normal size. Mediastinum and Page: No enlarged lymph nodes. Esophagus: No wall thickening. No hiatal hernia. ABDOMEN: Liver: Stable fluid attenuating cyst. No solid mass. Gallbladder: Unremarkable. Biliary ducts: Unremarkable. Pancreas: Unremarkable. Spleen: Unremarkable. Adrenal Glands: Unremarkable. Kidneys and Ureters: Unremarkable. Stomach and Bowel: Stomach, small bowel loops, and colon are unremarkable. Peritoneum: No abnormal intraperitoneal fluid. No free air. Ventral Wall: No hernia. Abdominal Nodes: No retroperitoneal or mesenteric adenopathy by size criteria. Vessels: Aorta and inferior vena cava are normal in size. PELVIS: Pelvic Organs: Unremarkable. Bladder: Unremarkable. Pelvic Nodes: No enlarged lymph nodes. Miscellaneous: No inguinal hernias are seen. Bones: There is slight sclerosis of the sternal manubrium, measuring 1.9 centimeter (series 4, image 35), without no soft tissue component. Stable since 2019. IMPRESSION: 1. Posttreatment change in the right upper lobe, without evidence of local recurrence or joya disease. 2. Stable sclerosis of the sternal manubrium since 2019. No measurable soft tissue component or other suspicious lesions. Findings are favored to be benign lesion rather than osseous metastatic disease. 3. Marked coronary artery calcifications for age. Consider cardiology referral. Dictated by: Ponce Evans M.D. on 01/14/2023 at 12:37 Approved by: Ponce Evans M.D. on 01/14/2023 at 12:47
== END ==
PROVIDERS: PCP Nurse Practitioner Family; Referring Provider Internal Medicine Medical Oncology; Visit Provider Internal Medicine Medical Oncology
DX: C34.91 Malignant neoplasm of unspecified part of right bronchus or lung (principal); I25.10 Atherosclerotic heart disease of native coronary artery without angina pectoris; M89.9 Disorder of bone, unspecified
CPT/HCPCS: 71260; 74177; Q9967